=== PATIENT | male | born 1955 | race Caucasian/White ===

== ENCOUNTER 2020-08-02 15:06 | Emergency (ER) | payer MEDICARE, SELFPAY ==
--- NOTE | 2020-08-02 15:19 | ED_ITS ---
HPI - Chest Pain General Chief Complaint: Nausea/Vomiting/Diarrhea <Milton Rivera MD - Last Filed: 08/02/20 15:32> Stated Complaint: Chest pain <Milton Rivera MD - Last Filed: 08/02/20 15:32> Time Seen by Provider: 08/02/20 15:19 <Milton Rivera MD - Last Filed: 08/02/20 15:32> Source: patient <Milton Rivera MD - Last Filed: 08/02/20 15:32> Mode of arrival: EMS <Milton Rivera MD - Last Filed: 08/02/20 15:32> Limitations: no limitations <Milton Rivera MD - Last Filed: 08/02/20 15:32> History of Present Illness HPI narrative: Past four days with Nausea, vomiting and diarrhea. Has been weak. Today while snow blowing the driveway he developed chest pain. Ambulance gave ASA and nitro without relief. <Milton Rivera MD - Last Filed: 08/02/20 15:32> MD complaint: chest pain <Milton Rivera MD - Last Filed: 08/02/20 15:32> Onset (ago): hour(s) <Milton Rivera MD - Last Filed: 08/02/20 15:32> Timing of current episode: episodic <Milton Rivera MD - Last Filed: 08/02/20 15:32> Onset: during exertion <Milton Rivera MD - Last Filed: 08/02/20 15:32> Pain location: left chest <Milton Rivera MD - Last Filed: 08/02/20 15:32> Severity: moderate <Milton Rivera MD - Last Filed: 08/02/20 15:32> Quality: sharp <Milton Rivera MD - Last Filed: 08/02/20 15:32> Relieving factors: nothing <Milton Rivera MD - Last Filed: 08/02/20 15:32> Associated symptoms: nausea and vomiting <Milton Rivera MD - Last Filed: 08/02/20 15:32> Treatment prior to arrival: aspirin and nitroglycerin <Milton Rivera MD - Last Filed: 08/02/20 15:32> Risk Factors Coronary artery disease risk factors: smoking history, hyperlipidemia and hypertension <Milton Rivera MD - Last Filed: 08/02/20 15:32> Related Data Home Medications: Home Medications Medication Instructions Recorded Confirmed citalopram 20 mg tablet 20 mg PO DAILY 04/12/20 06/05/20 lisinopril 10 mg tablet 10 mg PO DAILY 04/12/20 06/05/20 Previous Rx's Medication Instructions Recorded cyclobenzaprine 10 mg tablet 10 mg PO BEDTIME #30 tab 07/11/20 atorvastatin 10 mg tablet 10 mg PO BEDTIME #90 tab 07/12/20 meloxicam 15 mg tablet 15 mg PO DAILY #90 tab 07/12/20 prochlorperazine maleate 5 mg PO TID PRN #14 tab 08/02/20 [Compazine] <Milton Rivera MD - Last Filed: 08/02/20 15:32> Allergies/Adverse Reactions: Allergies Allergy/AdvReac Type Severity Reaction Status Date / Time atorvastatin Allergy Unknown hives Verified 07/11/20 13:52 rosuvastatin Allergy Unknown hives Verified 07/11/20 13:52 simvastatin Allergy Unknown hives Verified 07/11/20 13:52 <Milton Rivera MD - Last Filed: 08/02/20 15:32> Review of Systems Constitutional: Constitutional: Reports no additional constitutional complai nts <Milton Rivera MD - Last Filed: 08/02/20 15:32> Eyes: Eyes: Reports no additional eye complaints <Milton Rivera MD - Last Filed: 08/02/20 15:32> ENT: Denies dizziness <Milton Rivera MD - Last Filed: 08/02/20 15:32> Cardiovascular: Cardiovascular: Reports no additional cardiovascular complaints <Milton Rivera MD - Last Filed: 08/02/20 15:32> Respiratory: Respiratory: Reports as per HPI <Milton Rivera MD - Last Filed: 08/02/20 15:32> Gastrointestinal: Gastrointestinal: Reports no additional gastrointestinal complaints <Milton Rivera MD - Last Filed: 08/02/20 15:32> Musculoskeletal: Musculoskeletal: Reports no additional musculoskeletal complaints <Milton Rivera MD - Last Filed: 08/02/20 15:32> Integumentary/Breasts: Skin/Breast: Denies rash <Milton Rivera MD - Last Filed: 08/02/20 15:32> Neurologic: Reports system reviewed and no additional complaints, except as documented, Denies dizziness and Denies Sensory deficit (Neuro) <Milton Rivera MD - Last Filed: 08/02/20 15:32> Psychiatric: Psychiatric: Denies anxiety <Milton Rivera MD - Last Filed: 08/02/20 15:32> [facility] Past Medical History Medical History: Medical History Benign essential HTN Hypercholesterolemia <Milton Rivera MD - Last Filed: 08/02/20 15:32> Surgical History: Surgical History History of hernia surgery <Milton Rivera MD - Last Filed: 08/02/20 15:32> Family History Family History: Family History Father No problems noted. Mother No problems noted. <Milton Rivera MD - Last Filed: 08/02/20 15:32> Social History Social History: Social History Alcohol intake: former Year quit: 1986 Smoking Status: Former smoker Use of substances other than those prescribed or required for medical reasons: Yes Substance Use Type: Marijuana Substance Use Frequency: Occasionally Last Used Substance: Days (ago) Any prior treatment program specific to substance use: No Advance Directives: No Advance Directives Information Provided: Yes <Milton Rivera MD - Last Filed: 08/02/20 15:32> Physical Exam Vital Signs: Vital Signs: Last Vital Signs Temp 98.1 F 08/02/20 18:00 Pulse 69 08/02/20 21:08 Resp 16 08/02/20 21:08 BP 127/74 08/02/20 21:08 Pulse Ox 97 08/02/20 21:08 Body Mass Index 29.6 <Milton Rivera MD - Last Filed: 08/02/20 15:32> Vital Signs: Last Vital Signs Temp 98.1 F 08/02/20 18:00 Pulse 69 08/02/20 21:08 Resp 16 08/02/20 21:08 BP 127/74 08/02/20 21:08 Pulse Ox 97 08/02/20 21:08 Body Mass Index 29.6 <Radha Hall MD - Last Filed: 08/02/20 21:12> Const: Other: male wretching and vomiting <Mliton Rivera MD - Last Filed: 08/02/20 15:32> Nutritional Appearance: average body habitus <Milton Rivera MD - Last Filed: 08/02/20 15:32> Orientation/consciousness: oriented to person and patient oriented x3 <Milton Rivera MD - Last Filed: 08/02/20 15:32> Limitations: no limitations <Milton Rivera MD - Last Filed: 08/02/20 15:32> HENMT: Head: Yes normal to inspection <Milton Rivera MD - Last Filed: 08/02/20 15:32> Ears: external ears normal <Milton Rivera MD - Last Filed: 08/02/20 15:32> General nose exam: Normal external nose present <Milton Rivera MD - Last Filed: 08/02/20 15:32> Mouth: Normal oral and palatal mucosa present and oropharynx normal <Milton Rivera MD - Last Filed: 08/02/20 15:32> Throat: Yes posterior oropharynx normal <Milton Rivera MD - Last Filed: 08/02/20 15:32> Eyes: General: appearance normal, both eyes and all related structures <Milton Rivera MD - Last Filed: 08/02/20 15:32> Neck: Other: supple <Milton Rivera MD - Last Filed: 08/02/20 15:32> Neck: Yes normal visual inspection <Milton Rivera MD - Last Filed: 08/02/20 15:32> Chest: Chest palpation & inspection: normal inspection of the chest <Milton Rivera MD - Last Filed: 08/02/20 15:32> Resp: Auscultation: clear to auscultation bilaterally <Milton Rivera MD - Last Filed: 08/02/20 15:32> Cardio: Jugular venous distension: no JVD <Milton Rivera MD - Last Filed: 08/02/20 15:32> Rate: regular rate <Milton Rivera MD - Last Filed: 08/02/20 15:32> Rhythm: regular rhythm <Milton Rivera MD - Last Filed: 08/02/20 15:32> Heart sounds: S1 normal heart sound present and S2 normal heart sound present <Milton Rivera MD - Last Filed: 08/02/20 15:32> GI: Inspection: Yes normal to inspection <Milton Rivera MD - Last Filed: 08/02/20 15:32> Palpation (GI): Soft to palpation, nontender and No hepatosplenomegaly present <Milton Rivera MD - Last Filed: 08/02/20 15:32> Auscultation: normal bowel sounds <Milton Rivera MD - Last Filed: 08/02/20 15:32> : General: Yes no CVA tenderness <Milton Rivera MD - Last Filed: 08/02/20 15:32> Back/Spine/Pelvis: Back: no CVA tenderness <Milton Rivera MD - Last Filed: 08/02/20 15:32> Skin: General skin exam: no rashes or lesions noted <Milton Rivera MD - Last Filed: 08/02/20 15:32> Neuro: General: oriented to person and patient oriented x3 <Milton Rivera MD - Last Filed: 08/02/20 15:32> Cranial nerves: Yes CN's II-XII intact bilaterally <Milton Rivera MD - Last Filed: 08/02/20 15:32> Motor exam (neuro): 5/5 motor strength present throughout <Milton Rivera MD - Last Filed: 08/02/20 15:32> Sensory Exam: No Sensory deficit (Neuro) <Milton Rivera MD - Last Filed: 08/02/20 15:32> Extrem: General: Yes normal to inspection <Milton Rivera MD - Last Filed: 08/02/20 15:32> Psych: Appearance: grossly normal <Milton Rivera MD - Last Filed: 08/02/20 15:32> Course Course Course Narrative: I received sign-out from Dr. Rivera. Patient continues nausea and vomiting. After Compazine, patient had no longer vomiting. Second troponin less than delta 50. Patient no longer having chest pain. <Radha Hall MD - Last Filed: 08/02/20 21:12> MDM - Chest Pain Lab Data Result diagrams: : 08/02/20 16:41 08/02/20 16:41 <Milton Rivera MD - Last Filed: 08/02/20 15:32> Labs: Lab Results 08/02/20 08/02/20 08/02/20 Range/Units 16:05 16:41 16:41 WBC 9.8 (4.8-10.8) X10*3/uL RBC 5.24 (4.60-5.80) X10*6/uL Hgb 14.6 (14.0-18.0) g/dl Hct 44.1 (42-52) % MCV 84.2 (80-98) fL MCH 27.9 (27.0-33.0) pg MCHC 33.1 (31.0-36.0) g/dl RDW 13.2 (11.0-16.0) % Plt Count 215 (160-400) X10*3/uL MPV 9.9 (9.4-12.4) fL Immature Gran % (Auto) 0.3 (0.0-0.4) % Neut % (Auto) 83.8 H (45-73) % Lymph % (Auto) 10.8 L (20-40) % [place] % (Auto) 4.9 (2-11) % Eos % (Auto) 0.0 (0-4) % Baso % (Auto) 0.2 (0-2) % Lymph # (Auto) 1.1 L (1.2-4.9) X10*3/uL [place] # (Auto) 0.5 (0.1-1.2) X10*3/uL Eos # (Auto) 0.0 (0.0-0.4) X10*3/uL Baso # (Auto) 0.0 (0.0-0.2) X10*3/uL Abs Immat Gran (auto) 0.03 (0.00-0.03) X10*3/uL Absolute Neuts (auto) 8.3 (2.0-8.3) X10*3/uL Absolute Nucleated RBC 0.000 (0.0-0.012) X10*3/uL Nucleated RBC % (auto) 0.0 (0.0-0.2) /100WBC Sodium 139 (135-145) mmol/L Potassium 4.2 (3.3-5.1) mmol/l Chloride 104 (96-108) mmol/L Carbon Dioxide 24 (22-29) mmol/L Anion Gap 15 (12-20) BUN 25 H (9-16) mg/dL Creatinine 1.37 (0.5-1.4) mg/dL Estim Creat Clear Calc 57.3 Estimated GFR 52 Random Glucose 110 (60-115) mg/dL Calcium 8.9 (8.4-10.2) mg/dL Total Bilirubin 0.8 (0.0-1.0) mg/dL Direct Bilirubin 0.3 (0.0-0.5) mg/dL AST 15 (5-37) U/L ALT 15 (0-40) U/L Alkaline Phosphatase 59 (39-117) U/L Troponin I High Sens (<3.5-35.0) ng/L Total Protein 6.4 L (6.5-8.0) g/dL Albumin 4.1 (3.5-5.0) g/dL Lipase 15 (8-78) U/L COVID-19 (JOSE) Negative (Negative) COVID-19 Clin Com See Note 08/02/20 08/02/20 Range/Units 16:41 19:43 WBC (4.8-10.8) X10*3/uL RBC (4.60-5.80) X10*6/uL Hgb (14.0-18.0) g/dl Hct (42-52) % MCV (80-98) fL MCH (27.0-33.0) pg MCHC (31.0-36.0) g/dl RDW (11.0-16.0) % Plt Count (160-400) X10*3/uL MPV (9.4-12.4) fL Immature Gran % (Auto) (0.0-0.4) % Neut % (Auto) (45-73) % Lymph % (Auto) (20-40) % [place] % (Auto) (2-11) % Eos % (Auto) (0-4) % Baso % (Auto) (0-2) % Lymph # (Auto) (1.2-4.9) X10*3/uL [place] # (Auto) (0.1-1.2) X10*3/uL Eos # (Auto) (0.0-0.4) X10*3/uL Baso # (Auto) (0.0-0.2) X10*3/uL Abs Immat Gran (auto) (0.00-0.03) X10*3/uL Absolute Neuts (auto) (2.0-8.3) X10*3/uL Absolute Nucleated RBC (0.0-0.012) X10*3/uL Nucleated RBC % (auto) (0.0-0.2) /100WBC Sodium (135-145) mmol/L Potassium (3.3-5.1) mmol/l Chloride (96-108) mmol/L Carbon Dioxide (22-29) mmol/L Anion Gap (12-20) BUN (9-16) mg/dL Creatinine (0.5-1.4) mg/dL Estim Creat Clear Calc Estimated GFR Random Glucose (60-115) mg/dL Calcium (8.4-10.2) mg/dL Total Bilirubin (0.0-1.0) mg/dL Direct Bilirubin (0.0-0.5) mg/dL AST (5-37) U/L ALT (0-40) U/L Alkaline Phosphatase (39-117) U/L Troponin I High Sens 14.6 19.3 (<3.5-35.0) ng/L Total Protein (6.5-8.0) g/dL Albumin (3.5-5.0) g/dL Lipase (8-78) U/L COVID-19 (JOSE) (Negative) COVID-19 Clin Com <Milton Rivera MD - Last Filed: 08/02/20 15:32> Lab Results 08/02/20 08/02/20 08/02/20 Range/Units 16:05 16:41 16:41 WBC 9.8 (4.8-10.8) X10*3/uL RBC 5.24 (4.60-5.80) X10*6/uL Hgb 14.6 (14.0-18.0) g/dl Hct 44.1 (42-52) % MCV 84.2 (80-98) fL MCH 27.9 (27.0-33.0) pg MCHC 33.1 (31.0-36.0) g/dl RDW 13.2 (11.0-16.0) % Plt Count 215 (160-400) X10*3/uL MPV 9.9 (9.4-12.4) fL Immature Gran % (Auto) 0.3 (0.0-0.4) % Neut % (Auto) 83.8 H (45-73) % Lymph % (Auto) 10.8 L (20-40) % [place] % (Auto) 4.9 (2-11) % Eos % (Auto) 0.0 (0-4) % Baso % (Auto) 0.2 (0-2) % Lymph # (Auto) 1.1 L (1.2-4.9) X10*3/uL [place] # (Auto) 0.5 (0.1-1.2) X10*3/uL Eos # (Auto) 0.0 (0.0-0.4) X10*3/uL Baso # (Auto) 0.0 (0.0-0.2) X10*3/uL Abs Immat Gran (auto) 0.03 (0.00-0.03) X10*3/uL Absolute Neuts (auto) 8.3 (2.0-8.3) X10*3/uL Absolute Nucleated RBC 0.000 (0.0-0.012) X10*3/uL Nucleated RBC % (auto) 0.0 (0.0-0.2) /100WBC Sodium 139 (135-145) mmol/L Potassium 4.2 (3.3-5.1) mmol/l Chloride 104 (96-108) mmol/L Carbon Dioxide 24 (22-29) mmol/L Anion Gap 15 (12-20) BUN 25 H (9-16) mg/dL Creatinine 1.37 (0.5-1.4) mg/dL Estim Creat Clear Calc 57.3 Estimated GFR 52 Random Glucose 110 (60-115) mg/dL Calcium 8.9 (8.4-10.2) mg/dL Total Bilirubin 0.8 (0.0-1.0) mg/dL Direct Bilirubin 0.3 (0.0-0.5) mg/dL AST 15 (5-37) U/L ALT 15 (0-40) U/L Alkaline Phosphatase 59 (39-117) U/L Troponin I High Sens (<3.5-35.0) ng/L Total Protein 6.4 L (6.5-8.0) g/dL Albumin 4.1 (3.5-5.0) g/dL Lipase 15 (8-78) U/L COVID-19 (JOSE) Negative (Negative) COVID-19 Clin Com See Note 08/02/20 08/02/20 Range/Units 16:41 19:43 WBC (4.8-10.8) X10*3/uL RBC (4.60-5.80) X10*6/uL Hgb (14.0-18.0) g/dl Hct (42-52) % MCV (80-98) fL MCH (27.0-33.0) pg MCHC (31.0-36.0) g/dl RDW (11.0-16.0) % Plt Count (160-400) X10*3/uL MPV (9.4-12.4) fL Immature Gran % (Auto) (0.0-0.4) % Neut % (Auto) (45-73) % Lymph % (Auto) (20-40) % [place] % (Auto) (2-11) % Eos % (Auto) (0-4) % Baso % (Auto) (0-2) % Lymph # (Auto) (1.2-4.9) X10*3/uL [place] # (Auto) (0.1-1.2) X10*3/uL Eos # (Auto) (0.0-0.4) X10*3/uL Baso # (Auto) (0.0-0.2) X10*3/uL Abs Immat Gran (auto) (0.00-0.03) X10*3/uL Absolute Neuts (auto) (2.0-8.3) X10*3/uL Absolute Nucleated RBC (0.0-0.012) X10*3/uL Nucleated RBC % (auto) (0.0-0.2) /100WBC Sodium (135-145) mmol/L Potassium (3.3-5.1) mmol/l Chloride (96-108) mmol/L Carbon Dioxide (22-29) mmol/L Anion Gap (12-20) BUN (9-16) mg/dL Creatinine (0.5-1.4) mg/dL Estim Creat Clear Calc Estimated GFR Random Glucose (60-115) mg/dL Calcium (8.4-10.2) mg/dL Total Bilirubin (0.0-1.0) mg/dL Direct Bilirubin (0.0-0.5) mg/dL AST (5-37) U/L ALT (0-40) U/L Alkaline Phosphatase (39-117) U/L Troponin I High Sens 14.6 19.3 (<3.5-35.0) ng/L Total Protein (6.5-8.0) g/dL Albumin (3.5-5.0) g/dL Lipase (8-78) U/L COVID-19 (JOSE) (Negative) COVID-19 Clin Com <Radha Hall MD - Last Filed: 08/02/20 21:12> Discharge Plan Discharge Clinical Impression: Vomiting, Diarrhea, Chest pain <Milton Rivera MD - Last Filed: 08/02/20 15:32> Patient Disposition: Home, Self-Care <Milton Rivera MD - Last Filed: 08/02/20 15:32> Instructions: Acute Nausea and Vomiting (ED) <Milton Rivera MD - Last Filed: 08/02/20 15:32> Additional Instructions: Please follow-up with your primary care physician tomorrow. If you have any worsening or new symptoms, please return to the emergency room or call 911 <Milton Rivera MD - Last Filed: 08/02/20 15:32> Prescriptions: New prochlorperazine maleate [Compazine] 5 mg tablet 5 mg PO TID PRN (Reason: nausea and vomiting) Qty: 14 RF: 0 No Action atorvastatin 10 mg tablet 10 mg PO BEDTIME Qty: 90 RF: 0 meloxicam 15 mg tablet 15 mg PO DAILY Qty: 90 RF: 0 lisinopril 10 mg tablet 10 mg PO DAILY RF: 0 citalopram 20 mg tablet 20 mg PO DAILY RF: 0 cyclobenzaprine 10 mg tablet 10 mg PO BEDTIME Qty: 30 RF: 0 <Milton Rivera MD - Last Filed: 08/02/20 15:32>
--- NOTE | 2020-08-02 15:32 | ECG_ITS ---
Test Reason : CHEST PAIN Blood Pressure : / mmHG Vent. Rate : 081 BPM Atrial Rate : 081 BPM P-R Int : 200 ms QRS Dur : 122 ms QT Int : 404 ms P-R-T Axes : 015 002 012 degrees QTc Int : 469 ms Normal sinus rhythm with sinus arrhythmia Possible Left atrial enlargement Right bundle branch block Septal infarct (cited on or before 31-OCT-2004) Abnormal ECG When compared with ECG of 31-OCT-2004 10:10, Vent. rate has increased BY 30 BPM Right bundle branch block is now Present Questionable change in initial forces of Septal leads Referred By: Milton Rivera Electronically Signed By:Sage Torres
[2020-08-02 15:41] VITALS: BP 171/89; PULSE 69; RESP 12; O2SAT 99
[2020-08-02 15:51] VITALS: BP 159/85; BP 168/94; PULSE 100; PULSE 81; RESP 16; TEMP 36.8; O2SAT 99; BMI 29.6
[2020-08-02] MEDS: ondansetron HCL 4 MG/2 ML VIAL IVPUSH (16:03)
[2020-08-02] MEDS: 0.9 % Sodium Chloride 1,000 ML 999 ML IVCONT ×2 (16:03→19:07)
[2020-08-02 16:34] LABS: COVID-19 Test Negative (Negative); IDNOW Serial# 9DD0AD1C
[2020-08-02 16:46] LABS: MANUAL DIFF FLAG NO
[2020-08-02 16:55] LABS: Basophils Percent Auto 0.2 % (0-2); Hematocrit 44.1 % (42-52); Hemoglobin 14.6 g/dl (14.0-18.0); Imm Gran Abs Auto 0.03 X10*3/uL (0.00-0.03); Imm Gran Pct Auto 0.3 % (0.0-0.4); Lymphocytes Absolute Auto 1.1 X10*3/uL (1.2-4.9); Lymphocytes Percent Auto 10.8 % (20-40); Mean Corpuscular HGB Conc 33.1 g/dl (31.0-36.0); Mean Corpuscular Hemoglobin 27.9 pg (27.0-33.0); Mean Corpuscular Volume 84.2 fL (80-98); Mean Platelet Volume 9.9 fL (9.4-12.4); Monocytes Absolute Auto 0.5 X10*3/uL (0.1-1.2); Monocytes Percent Auto 4.9 % (2-11); Neutrophils Absolute Auto 8.3 X10*3/uL (2.0-8.3); Neutrophils Percent Auto 83.8 % (45-73); Platelet Count 215 X10*3/uL (160-400); Red Blood Count 5.24 X10*6/uL (4.60-5.80); Red Cell Distribution Width 13.2 % (11.0-16.0); White Blood Count 9.8 X10*3/uL (4.8-10.8)
[2020-08-02 17:16] LABS: Alanine Aminotransferase 15 U/L (0-40); Albumin Level 4.1 g/dL (3.5-5.0); Alkaline Phosphatase 59 U/L (39-117); Anion Gap 15 (12-20); Aspartate Amino Transferase 15 U/L (5-37); Bilirubin Direct 0.3 mg/dL (0.0-0.5); Bilirubin Total 0.8 mg/dL (0.0-1.0); Blood Urea Nitrogen 25 mg/dL (9-16); Calcium 8.9 mg/dL (8.4-10.2); Carbon Dioxide 24 mmol/L (22-29); Chloride 104 mmol/L (96-108); Creatinine Clr Calc Pharmacy 57.3; Estimated Glomerular Filt Rate 52; Glucose Random 110 mg/dL (60-115); Lipase 15 U/L (8-78); Potassium 4.2 mmol/l (3.3-5.1); Sodium 139 mmol/L (135-145); Total Protein 6.4 g/dL (6.5-8.0)
[2020-08-02 17:20] LABS: Troponin-I High Sensitivity 14.6 ng/L (<3.5-35.0)
[2020-08-02 17:27] VITALS: BP 182/93; PULSE 77; RESP 16; O2SAT 98
[2020-08-02 18:00] VITALS: BP 184/84; PULSE 67; RESP 13; TEMP 36.7; O2SAT 99
[2020-08-02] MEDS: Prochlorperazine Edisylate 10 MG/2 ML VIAL IVPUSH (19:07)
[2020-08-02 19:08] VITALS: BP 193/108; PULSE 69; RESP 18; O2SAT 99
[2020-08-02] MEDS: Labetalol HCL 100 MG TABLET PO (19:34)
[2020-08-02 20:14] LABS: Troponin-I High Sensitivity 19.3 ng/L (<3.5-35.0)
[2020-08-02 21:08] VITALS: BP 127/74; PULSE 69; RESP 16; O2SAT 97
[2020-08-02] MEDS: Lidocaine HCl Viscous 2 % 15 ML SOLUTION MUCOUS MEM (21:43)
== END 2020-08-02 21:57 | disposition home or self-care (01) ==
PROVIDERS: Emergency Medicine; Emergency Provider Emergency Medicine; PCP Internal Medicine
DX: R11.2 Nausea with vomiting, unspecified (principal); R07.89 Other chest pain; F12.90 Cannabis use, unspecified, uncomplicated; Z20.822 Contact with and (suspected) exposure to COVID-19; Z79.899 Other long term (current) drug therapy; Z87.891 Personal history of nicotine dependence
CPT/HCPCS: 36415; 80048; 80076; 83690; 84484; 85025; 87635; 93005; 96361; 96374; 96375; 99284; J2405

== ENCOUNTER 2020-08-22 10:51 | Outpatient (REF) | payer MEDICARE, SELFPAY ==
--- NOTE | ~2020-08-22 | CT_ITS ---
EXAMINATION: CT ABDOMEN AND PELVIS WITH CONTRAST CLINICAL INFORMATION: Left lower quadrant pain COMPARISON: None TECHNIQUE: Multidetector volumetric images were obtained from the superior aspect of the liver through the pubic symphysis following administration 85 mL of Omnipaque 350 intravenous contrast. Sagittal and coronal reformatted images were obtained on the technologist's workstation. Oral contrast: No This CT examination was performed using dose optimization techniques as appropriate, variously including the following: *Automated exposure control *Adjustment of mA and/or kV according to patient size (this includes techniques or standardized protocols for targeted exams where dose is matched to indication/reason for exam; i.e. extremities or head) *Use of iterative reconstruction technique DLP: 503 mGy-cm FINDINGS: LUNG BASES: There is mild mosaic lung attenuation at the lung bases suggesting small airways disease. LIVER, GALLBLADDER, AND BILIARY TREE: The liver is normal in size, shape, and attenuation. No focal hepatic lesion or biliary ductal dilatation is present. The gallbladder is unremarkable with no evidence of radiopaque gallstones, gallbladder wall thickening, or obvious pericholecystic inflammatory changes. PANCREAS: Unremarkable. SPLEEN: Unremarkable. ADRENAL GLANDS: Unremarkable. KIDNEYS AND URETERS: Right kidney is normal. There is severe left hydroureteronephrosis with the dilated left ureter followed to the pelvis were there is a 8 mm obstructing left distal ureteral calculus. BLADDER: Unremarkable. GASTROINTESTINAL TRACT: Stomach and small bowel are nondilated. Normal appendix. There is colonic diverticulosis, severe in the sigmoid colon. No evidence of colitis or diverticulitis. ABDOMINAL WALL: There is fat in the inguinal canals bilaterally, right greater than left. Small fat-containing umbilical hernia. LYMPH NODES: Normal. VASCULAR: Unremarkable. PELVIC VISCERA: The prostate and seminal vesicles are unremarkable. OSSEOUS STRUCTURES: Unremarkable. CT/CT abdomen pelvis w con IMPRESSION: Severe left hydroureteronephrosis secondary to a 8 mm obstructing left distal ureteral calculus the level of the midpelvis.
[2020-08-22] MEDS: iohexoL 350 MG/ML 100 ML INFUS..BTL IV (14:01)
[2020-08-22] MEDS: Barium Sulfate Oral (Mocha) 450 ML ORAL.SUSP 900 ML PO (14:02)
== END 2020-08-22 10:52 | disposition home or self-care (01) ==
LOC: HO.CT 10:51
PROVIDERS: Visit Provider Physician Assistant
DX: R10.32 Left lower quadrant pain (principal)
CPT/HCPCS: 74177; Q9967

== ENCOUNTER → 2020-08-29 10:45 | Outpatient (BNVA) | payer MEDICARE, SELFPAY | PROVIDERS: PCP Internal Medicine; Visit Provider Urology | DX: N13.30 Unspecified hydronephrosis (principal); N20.0 Calculus of kidney; N13.8 Other obstructive and reflux uropathy | CPT/HCPCS: 99202 ==

== ENCOUNTER → 2020-09-07 10:49 | Outpatient (BNVA) | payer MEDICARE, SELFPAY | PROVIDERS: PCP Internal Medicine; Visit Provider Physician Assistant | DX: R10.32 Left lower quadrant pain (principal) | CPT/HCPCS: Q3014 ==

== ENCOUNTER 2020-09-11 08:25 | Day surgery (SDC) | payer MEDICARE, SELFPAY ==
[2020-09-07 10:03] VITALS: BMI 28.1
[2020-09-11] VITALS (7 sets, daily range): BP systolic 106–147; BP diastolic 63–92; PULSE 48–56; RESP 14–18; TEMP 36.6–36.8; O2SAT 100
--- NOTE | ~2020-09-11 | FL_ITS ---
EXAMINATION: XR FLUOROSCOPY WITH IMAGES CLINICAL INFORMATION: Left retrograde pyelogram COMPARISON: None. TECHNIQUE: Fluoroscopy performed by Dr. Dewey Gruber. Fluoroscopy time: 35.1 seconds Images: 2 FINDINGS: On the images provided there is a left ureteral stent in place. No contrast seen on these images. FL/FL guidance in OR IMPRESSION: Fluoroscopic guidance with left ureteral stent in place. Please refer to procedural report for further information.
--- NOTE | 2020-09-11 09:43 | HO.ANESPROP2 ---
[facility] Active Problems Active Problems: All Active Problems (Updated 09/08/20 @ 13:04 by Farheen Noonan PA-C) Rhinitis (Acute) Low back pain (Acute) LLQ abdominal pain (Acute) Tubular adenoma of colon (Acute) Abdominal pain, chronic, epigastric (Acute) Insomnia (Acute) Hydronephrosis (Acute) Urinary tract obstruction by kidney stone (Acute) Hypercholesterolemia (Acute) Benign essential HTN (Acute) Past Medical History Medical History Arthritis Back pain Benign essential HTN Bruises easily GERD (gastroesophageal reflux disease) Hypercholesterolemia Nausea Renal calculi Stress Family History Family History Father No problems noted. Mother No problems noted. Surgical History Surgical History H/O colonoscopy History of hernia surgery Social History Social History Household Members: Spouse Are you a primary family day care provider to a significant other at home: No Do you presently have visiting nurse or other home services: No Alcohol intake: current Alcohol intake frequency: a few times a month Alcohol type: beer Smoking Status: Former smoker Smoked in Last 30 Days: No Smoking Quit Date: 2017 Use of substances other than those prescribed or required for medical reasons: Yes Substance Use Type: Marijuana Substance Use Frequency: Occasionally Have you been hit, kicked, punched, or otherwise hurt by someone within the past year? If so, by whom?: No Advance Directives Information Provided: No Recently lost weight without trying: Yes Current occupational status: retired Meds Allergies Allergy/AdvReac Type Severity Reaction Status Date / Time atorvastatin Allergy Intermediate hives Verified 09/07/20 10:50 (high doses) rosuvastatin Allergy Intermediate hives Verified 09/07/20 10:50 (high doses) simvastatin Allergy Intermediate hives Verified 09/07/20 10:50 (high doses) Active Medications: Current Medications Generic Name Dose Route Start Last Admin Trade Name Freq PRN Reason Stop Dose Admin Acetaminophen 650 mg 09/11/20 09:43 Acetaminophen 325 Mg Tablet PO 09/11/20 09:44 ONCE ONE Sodium Chloride 1,000 mls @ 50 mls/hr 09/11/20 09:45 Ns IVCONT .Q20H EMANUEL Levofloxacin 500 mg 09/11/20 09:43 Levofloxacin 500 Mg Tablet PO 09/11/20 09:44 ONCE ONE Home Medications Medication Instructions Recorded Confirmed Last Taken Type lisinopril 10 mg tablet 10 mg PO DAILY 04/12/20 09/07/20 Unknown History cyclobenzaprine 10 mg PO BEDTIME PRN 09/07/20 09/07/20 Unknown History meloxicam 15 mg PO DAILY PRN 09/07/20 09/07/20 Unknown History Exam Exam Date and Time: September 11, 2020 0943 Height,Weight and Vital Signs: Height 5 ft 8 in Weight 83.915 kg Last Vital Signs Temp 98.2 F 09/11/20 09:36 Pulse 56 09/11/20 09:36 Resp 18 09/11/20 09:36 BP 147/77 H 09/11/20 09:36 Pulse Ox 100 09/11/20 09:36 Airway Mallampati Class: II TM Dist: >3cm Neck ROM: Full Partial: Upper and Lower Heart: RRr Lungs: CTA BL Assessment and Plan Assessment Anesthesia Assessment: Anesthesia Plan Discussed and Chart Reviewed Final Anesthetic Review NPO: Yes (Sip water with meds) ASA Class: III Final Preanesthetic Review: No Changes in Pt Med Stat and Consent Obtained/Reviewed Patient Risk: Intermediate Procedure Risk: Intermediate Anesthetic Plan Anesthetic Plan: GA Disposition: Standard PACU
[2020-09-11] MEDS: Acetaminophen 325 MG TABLET 650 MG PO (10:28)
[2020-09-11] MEDS: levoFLOXacin 500 MG TABLET PO (10:29)
--- NOTE | 2020-09-11 12:26 | MHC.SHP ---
Pre-Procedural Eval Section A The patient is an INPATIENT: No Changes since office visit: No Cold of Flu in the past 2 weeks, No New Medical Problems, No Changes in Medication and No Patient answered all questions The History & Physical has been completed within 30 days and I have reviewed it.: Yes Section B Chief Complaint: kidney stone Allergies: Allergies Allergy/AdvReac Type Severity Reaction Status Date / Time atorvastatin Allergy Intermediate hives Verified 09/07/20 10:50 (high doses) rosuvastatin Allergy Intermediate hives Verified 09/07/20 10:50 (high doses) simvastatin Allergy Intermediate hives Verified 09/07/20 10:50 (high doses) Plan Diagnosis/Plan: Unchanged I have reviewed the history and physical and performed a pertinent physical examination on my patient. No changes have occurred unless specified. Cystoscopy, left retrograde, left ureteroscopy laser lithotripsy stent placement
[2020-09-11] MEDS: Lactated Ringers 1,000 ML 50 ML IV (12:40)
--- NOTE | 2020-09-11 13:24 | PM.OP ---
Brief Operative Note Date of Service: 09/11/20 Pre-op diagnosis: Left mid ureteric stone with hydronephrosis Post-op diagnosis: same Procedure: 1. Cystoscopy left retrograde 2. Dilatation left ureteric orifice under fluoroscopy 3. Left rigid ureteroscopy laser lithotripsy stone basketing 4. Left stent placement Implants: Six [place] by 24 cm double-J ureteric catheter Surgeon: Dewey Gruber MD Anesthesia: GLMA Estimated blood loss (mL): 0 Pathology: other (Stones) Condition: stable Disposition: same day
--- NOTE | 2020-09-11 13:29 | P.OP_ITS ---
Operative Note Operative Note Date of Service: 09/11/20 Narrative: PreOperative Diagnosis: Left mid ureteric stone Post Operative Diagnosis: Left mid ureteric stone Procedure: - cystoscopy, left retrograde - left dilatation of ureteric orifice under fluoroscopy - left ureteroscopy, laser lithotripsy, stone basketing - stent placement Surgeon: Dr Dewey Gruber Anesthesia: General Indications for procedure: Persistent left flank pain. He thought it was due to back pain. X-ray revealed stone. Left mid ureteric stone of unknown origin and timing. Recommend ureteroscopy laser lithotripsy since is below level acceptable for ESWL. Risks and benefits were discussed. Procedure: After informed consent was verified patient was brought to the operating placed in supine position. Anesthesia was administered per protocol. Patient was placed in modified dorsal lithotomy position and prepped and draped in a sterile fashion. Safety pause time-out and side of surgery confirmed. Antibiotics confirmed. Twenty-two [place] cystoscope placed per urethra. No abnormality noted of the anterior posterior urethra. Both ureteric orifices in position. Left ureteric orifice cannulated and retrograde examination performed. Filling defects seen in the junction between the distal mid ureter. Sensor guidewire placed. Britany dilator under fluoroscopy used to dilate the left ureteric orifice. Rigid ureteroscopy performed. Stone was encountered. 360 nm laser holmium fiber used.. Stone broken into small pieces. Flat wire basket used to remove debris with multiple passes. When ureter was clear decision made to place a 6 [place] by 24 cm double-J ureteric catheter. The wire was backloaded into the cystoscope and the stent was advanced. He tolerated the procedure well was extubated in the operating room and transferred in stable condition to recovery area. Pathology: Stones Drains: 6 [place] by 24 cm double-J ureteric stent
[2020-09-11] MEDS: Phenazopyridine HCL 100 MG TABLET PO (14:08)
[2020-09-11] MEDS: oxyCODONE HCl Immed Release 5 MG TABLET PO (14:09)
[2020-09-11] MEDS: NaPROXEN 500 MG TABLET PO (14:13)
[2020-09-14 14:52] LABS: Stone Source URETHRAL
== END 2020-09-11 14:46 | disposition home or self-care (01) ==
PROVIDERS: PCP Internal Medicine; Visit Provider Urology
PROC: (CPT 52356; principal; 2020-09-11 10:00)
DX: N13.2 Hydronephrosis with renal and ureteral calculous obstruction (principal); I10 Essential (primary) hypertension; E78.00 Pure hypercholesterolemia, unspecified; Z79.899 Other long term (current) drug therapy; Z88.8 Allergy status to other drugs, medicaments and biological substances; F12.90 Cannabis use, unspecified, uncomplicated; Z87.891 Personal history of nicotine dependence
CPT/HCPCS: 52356; 82365; 88300; C1769; C2617; J1100; J2250; J2405; J3010; Q9967

== ENCOUNTER → 2020-09-21 12:52 | Outpatient (BNVA) | payer MEDICARE, SELFPAY | PROVIDERS: PCP Internal Medicine; Visit Provider Urology | DX: N20.0 Calculus of kidney (principal) | CPT/HCPCS: 52310; 99212 ==

== ENCOUNTER 2020-09-26 12:20 | Outpatient (REF) | payer MEDICARE, SELFPAY ==
--- NOTE | ~2020-09-26 | US_ITS ---
EXAMINATION: US RETROPERITONEAL LIMITED (RENAL ONLY) CLINICAL INFORMATION: Calculus of kidney. COMPARISON: CT abdomen and pelvis to 08/22/2020. TECHNIQUE: Real-time imaging of the kidneys. FINDINGS: RIGHT KIDNEY: 11.3 x 6.9 x 6.3 cm (SAG x AP x TRV). The kidney is normal in size, contour, and echogenicity. Renal cortical thickness is normal. No calculi or focal parenchymal lesions. No hydronephrosis. LEFT KIDNEY: 12.3 x 6.1 x 5.6 cm (SAG x AP x TRV). The kidney is normal in size, contour, and echogenicity. Renal cortical thickness is normal. There is mild left hydronephrosis. The visualized left proximal ureter is dilated. This appears slightly decreased from August 2020 CT scan. No calculi or focal parenchymal lesions. US/US renal BI IMPRESSION: Mild left hydronephrosis and dilatation of the visualized left proximal ureter. This is decreased from August 2020 exam. Normal right kidney.
== END 2020-09-26 12:21 | disposition home or self-care (01) ==
LOC: HO.US 12:20
PROVIDERS: Visit Provider Urology
DX: N20.0 Calculus of kidney (principal)
CPT/HCPCS: 76775

== ENCOUNTER → 2020-11-03 11:23 | Outpatient (BNVA) | payer MEDICARE, SELFPAY | PROVIDERS: PCP Internal Medicine; Visit Provider Urology | DX: N20.0 Calculus of kidney (principal) | CPT/HCPCS: 99212 ==

== ENCOUNTER 2021-01-15 09:01 | Outpatient (REF) | payer MEDICARE, SELFPAY ==
[2021-01-15 10:08] LABS: Hematocrit 46.1 % (42-52); Hemoglobin 14.8 g/dl (14.0-18.0); Mean Corpuscular HGB Conc 32.1 g/dl (31.0-36.0); Mean Corpuscular Hemoglobin 27.7 pg (27.0-33.0); Mean Corpuscular Volume 86.3 fL (80-98); Mean Platelet Volume 10.1 fL (9.4-12.4); Platelet Count 220 X10*3/uL (160-400); Red Blood Count 5.34 X10*6/uL (4.60-5.80); Red Cell Distribution Width 13.2 % (11.0-16.0); White Blood Count 7.1 X10*3/uL (4.8-10.8)
[2021-01-15 10:10] LABS: Glucose Urine UA NEG (NEG); Leukocyte Esterase Urine NEG (NEG); Nitrite Urine NEG (NEG); Specific Gravity - Urine >= 1.030 (1.005-1.025); Urine Blood 2+ (NEG); Urine Ketones NEG (NEG); Urine Protein NEG (NEG-TRACE)
[2021-01-15 10:12] LABS: Appearance Urine CLEAR; Color Urine YELLOW
[2021-01-15 10:26] LABS: Bacteria Urine 1+ /LPF; RBC Urine 0-2 /HPF (0); WBC Urine 0 /HPF (0-4)
[2021-01-15 10:30] LABS: Alanine Aminotransferase 19 U/L (0-40); Albumin Level 4.3 g/dL (3.5-5.0); Alkaline Phosphatase 74 U/L (39-117); Anion Gap 13 (12-20); Aspartate Amino Transferase 20 U/L (5-37); Bilirubin Direct 0.3 mg/dL (0.0-0.5); Bilirubin Total 0.9 mg/dL (0.0-1.0); Blood Urea Nitrogen 18 mg/dL (9-16); Calcium 10.2 mg/dL (8.4-10.2); Carbon Dioxide 25 mmol/L (22-29); Chloride 106 mmol/L (96-108); Cholesterol 182 mg/dL; Estimated Glomerular Filt Rate > 60; Glucose Random 113 mg/dL (60-115); HDL Cholesterol 47 mg/dL; LDL Cholesterol Calculated 106 mg/dl; Potassium 5.2 mmol/L (3.3-5.1); Sodium 139 mmol/L (135-145); Triglycerides 146 mg/dL
[2021-01-15 11:03] LABS: Prostate Specific Antigen Scr 2.47 ng/mL (<0.05-4.0)
== END 2021-01-15 09:02 | disposition home or self-care (01) ==
LOC: HO.LAB 09:01
PROVIDERS: PCP Internal Medicine; Visit Provider Internal Medicine
DX: E78.00 Pure hypercholesterolemia, unspecified (principal); I10 Essential (primary) hypertension
CPT/HCPCS: 36415; 80048; 80061; 80076; 81001; 81003; 84153; 85027

== ENCOUNTER → 2021-05-08 11:14 | Outpatient (BNVA) | payer MEDICARE, SELFPAY | PROVIDERS: Visit Provider Urology | CPT/HCPCS: Q3014 ==

== ENCOUNTER 2021-06-05 12:51 | Outpatient (REF) | payer MEDICARE, SELFPAY ==
--- NOTE | ~2021-06-05 | US_ITS ---
EXAMINATION: US RETROPERITONEAL LIMITED (RENAL ONLY) CLINICAL INFORMATION: Calculus of kidney. COMPARISON: CT abdomen and pelvis 08/22/2020. Renal ultrasound 09/26/2020. TECHNIQUE: Real-time imaging of the kidneys. FINDINGS: RIGHT KIDNEY: 11.6 x 6.5 x 6.4 cm (SAG x AP x TRV). The kidney is normal in size, contour, and echogenicity. Renal cortical thickness is normal. No calculi or focal parenchymal lesions. No hydronephrosis. LEFT KIDNEY: 11.1 x 6.0 x 5.7 cm (SAG x AP x TRV). The kidney is normal in size, contour, and echogenicity. Renal cortical thickness is normal. There is mild fullness in the lower pole calyx. US/US renal BI IMPRESSION: Mild fullness of lower pole calyx without any echogenic stone. Otherwise, the rest of the kidneys are unremarkable. On previous CT 08/22/2020 and ultrasound 09/26/2020 there was moderate hydroureteronephrosis and radiopaque calculi in the distal ureter on CT.
== END 2021-06-05 12:52 | disposition home or self-care (01) ==
LOC: HO.US 12:51
PROVIDERS: PCP Internal Medicine; Visit Provider Urology
DX: N20.0 Calculus of kidney (principal)
CPT/HCPCS: 76775

== ENCOUNTER 2021-10-29 13:17 | Outpatient (REF) | payer MEDICARE, SELFPAY ==
--- NOTE | ~2021-10-29 | US_ITS ---
EXAMINATION: US RETROPERITONEAL LIMITED (RENAL ONLY) CLINICAL INFORMATION: Calculus of kidney. COMPARISON: Renal ultrasound 06/05/2021 and 09/26/2020. CT abdomen and pelvis 08/22/2020. TECHNIQUE: Real-time imaging of the kidneys. FINDINGS: RIGHT KIDNEY: 12.4 x 6.9 x 7.2 cm (SAG x AP x TRV). The kidney is normal in size, contour, and echogenicity. Renal cortical thickness is normal. No calculi or focal parenchymal lesions. No hydronephrosis. There is mild prominence of column of Bandar in the midpole LEFT KIDNEY: 12.7 x 6.0 x 6.2 cm (SAG x AP x TRV). The kidney is normal in size, contour, and echogenicity. Renal cortical thickness is normal. No focal parenchymal lesions or hydronephrosis. There is an echogenic stone lower pole measuring 8 x 4 mm. There is no caliectasis or hydronephrosis. US/US renal BI IMPRESSION: There is a nonobstructive echogenic stone lower pole measuring 8 x 4 mm. Prominent column of Bandar.
== END 2021-10-29 13:18 | disposition home or self-care (01) ==
LOC: HO.US 13:17
PROVIDERS: Visit Provider Urology
DX: N20.0 Calculus of kidney (principal)
CPT/HCPCS: 76775

== ENCOUNTER → 2021-11-14 10:37 | Outpatient (BNVA) | payer MEDICARE, SELFPAY | PROVIDERS: Visit Provider Urology | DX: N20.0 Calculus of kidney (principal) | CPT/HCPCS: 99212 ==

== ENCOUNTER 2022-04-29 10:51 | Outpatient (REF) | payer MEDICARE, SELFPAY ==
--- NOTE | ~2022-04-29 | XR_ITS ---
EXAMINATION: XR ABDOMEN KUB CLINICAL INDICATION: Kidney stone COMPARISON: Previous renal ultrasounds most recent from earlier the same day and CT of the abdomen and pelvis August 2020 TECHNIQUE: AP view of the abdomen. FINDINGS: No renal stone is seen. No calcifications projecting over the expected course of the ureters or bladder. Normal bowel gas pattern. Degenerative changes of the spine. Proximal lumbar vertebral body compression fracture unchanged from previous CT August 2020 XR/XR KUB IMPRESSION: No stone seen.
--- NOTE | ~2022-04-29 | US_ITS ---
EXAMINATION: US RETROPERITONEAL LIMITED (RENAL ONLY) CLINICAL INFORMATION: Calculus of kidney. COMPARISON: Ultrasound retroperitoneal limited (renal only) 10/29/2021 and 06/05/2021. X-ray abdomen KUB 04/29/2022. CT abdomen and pelvis with contrast 08/22/2020. TECHNIQUE: Real-time imaging of the kidneys. Technically limited study secondary to body habitus. FINDINGS: RIGHT KIDNEY: 11.4 x 6.9 x 6.6 cm (SAG x AP x TRV). The kidney is normal in size, contour, and echogenicity. Renal cortical thickness is normal. No calculi or focal parenchymal lesions. No hydronephrosis. LEFT KIDNEY: 12.4 x 5.2 x 5.1 cm (SAG x AP x TRV). The kidney is normal in size, contour, and echogenicity. Renal cortical thickness is normal. No calculi or focal parenchymal lesions. No hydronephrosis. US/US renal BI IMPRESSION: Limited but normal renal ultrasound.
== END 2022-04-29 10:52 | disposition home or self-care (01) ==
LOC: HO.US 10:51
PROVIDERS: Visit Provider Urology
DX: N20.0 Calculus of kidney (principal)
CPT/HCPCS: 74018; 76775

== ENCOUNTER → 2022-05-17 10:49 | Outpatient (BNVA) | payer MEDICARE, SELFPAY | PROVIDERS: PCP Internal Medicine; Visit Provider Urology | DX: N20.0 Calculus of kidney (principal) | CPT/HCPCS: 99212 ==

== ENCOUNTER 2022-06-07 09:23 | Outpatient (REF) | payer MEDICARE, SELFPAY ==
[2022-06-07 10:28] LABS: Hemoglobin 14.8 g/dl (14.0-18.0); Mean Corpuscular HGB Conc 32.9 g/dl (31.0-36.0); Mean Corpuscular Volume 88.2 fL (80.0-98.0); Mean Platelet Volume 10.3 fL (9.4-12.4); Platelet Count 204 X10*3/uL (160-400); Red Cell Distribution Width 13.4 % (11.0-16.0); White Blood Count 6.3 X10*3/uL (4.8-10.8)
[2022-06-07 12:09] LABS: Alanine Aminotransferase 27 U/L (0-40); Albumin Level 4.3 g/dL (3.5-5.0); Alkaline Phosphatase 76 U/L (39-117); Anion Gap 14 (12-20); Aspartate Amino Transferase 22 U/L (5-37); Bilirubin Direct 0.2 mg/dL (0.0-0.5); Bilirubin Total 0.6 mg/dL (0.0-1.0); Blood Urea Nitrogen 17 mg/dL (9-16); Carbon Dioxide 25 mmol/L (22-29); Chloride 108 mmol/L (96-108); Cholesterol 171 mg/dL; Estimated Glomerular Filt Rate > 60; Glucose Random 117 mg/dL (60-115); HDL Cholesterol 43 mg/dL; LDL Cholesterol Calculated 106 mg/dl; Potassium 4.7 mmol/L (3.3-5.1); Thyroid Stimulating Hormone 3.09 uIU/mL (0.32-4.0); Total Protein 6.7 g/dL (6.5-8.0); Triglycerides 113 mg/dL
[2022-06-07 12:37] LABS: Sodium 142 mmol/L (135-145)
== END 2022-06-07 09:24 | disposition home or self-care (01) ==
LOC: HO.LAB 09:23
PROVIDERS: PCP Internal Medicine; Visit Provider Internal Medicine
DX: E78.00 Pure hypercholesterolemia, unspecified (principal); I10 Essential (primary) hypertension
CPT/HCPCS: 36415; 80048; 80061; 80076; 84443; 85027

== ENCOUNTER 2022-12-06 09:50 | Outpatient (REF) | payer MEDICARE, SELFPAY ==
[2022-12-06 10:59] LABS: Hematocrit 45.2 % (42.0-52.0); Hemoglobin 14.6 g/dl (14.0-18.0); Mean Corpuscular HGB Conc 32.3 g/dl (31.0-36.0); Mean Corpuscular Hemoglobin 28.7 pg (27.0-33.0); Mean Platelet Volume 10.7 fL (9.4-12.4); Platelet Count 195 X10*3/uL (160-400); Red Blood Count 5.08 X10*6/uL (4.60-5.80); Red Cell Distribution Width 13.2 % (11.0-16.0)
[2022-12-06 12:10] LABS: Alanine Aminotransferase 28 U/L (0-40); Albumin Level 4.1 g/dL (3.5-5.0); Alkaline Phosphatase 76 U/L (39-117); Anion Gap 10 (12-20); Aspartate Amino Transferase 23 U/L (5-37); Bilirubin Direct 0.2 mg/dL (0.0-0.5); Bilirubin Total 0.7 mg/dL (0.0-1.0); Blood Urea Nitrogen 17 mg/dL (9-16); Calcium 9.6 mg/dL (8.4-10.2); Carbon Dioxide 27 mmol/L (22-29); Chloride 109 mmol/L (96-108); Cholesterol 168 mg/dL; Estimated Glomerular Filt Rate > 60; Glucose Random 101 mg/dL (60-115); HDL Cholesterol 46 mg/dL; LDL Cholesterol Calculated 102 mg/dl; Potassium 4.6 mmol/L (3.3-5.1); Sodium 141 mmol/L (135-145); Total Protein 6.6 g/dL (6.5-8.0); Triglycerides 104 mg/dL
[2022-12-06 12:12] LABS: Thyroid Stimulating Hormone 2.61 uIU/mL (0.32-4.0)
== END 2022-12-06 09:51 | disposition home or self-care (01) ==
LOC: HO.LAB 09:50
PROVIDERS: PCP Internal Medicine; Visit Provider Internal Medicine
DX: I10 Essential (primary) hypertension (principal)
CPT/HCPCS: 36415; 80048; 80061; 80076; 84443; 85027

== ENCOUNTER 2023-05-01 09:21 | Outpatient (REF) | payer MEDICARE, SELFPAY ==
--- NOTE | ~2023-05-01 | US_ITS ---
EXAMINATION: US RETROPERITONEAL LIMITED (RENAL ONLY) CLINICAL INFORMATION: Calculus of kidney. COMPARISON: X-ray abdomen KUB 04/29/2022. Renal ultrasound 04/29/2022 and 10/29/2021. CT abdomen and pelvis 08/22/2020. TECHNIQUE: Real-time imaging of the kidneys. Technically difficult study secondary to body habitus. FINDINGS: RIGHT KIDNEY: 11.4 x 6.9 x 6.0 cm (SAG x AP x TRV). The kidney is normal in size, contour, and echogenicity. Renal cortical thickness is normal. No calculi or focal parenchymal lesions. No hydronephrosis. LEFT KIDNEY: 11.7 x 5.2 x 4.8 cm (SAG x AP x TRV). The kidney is normal in size, contour, and echogenicity. Renal cortical thickness is normal. No calculi or focal parenchymal lesions. No hydronephrosis. US/US renal BI IMPRESSION: Unremarkable examination.
== END 2023-05-01 09:22 | disposition home or self-care (01) ==
LOC: HO.US 09:21
PROVIDERS: PCP Internal Medicine; Visit Provider Urology
DX: N20.0 Calculus of kidney (principal)
CPT/HCPCS: 76775

== ENCOUNTER 2023-05-20 11:26 | Outpatient (AMB) | payer MEDICARE, SELFPAY ==
--- NOTE | 2023-05-20 11:29 | A.OFFVIS_ITS ---
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 He is a patient of Dr Preston. He seen for the following urologic conditions - nephrolithiasis No evidence of stones on imaging Twelve month follow-up Given dietary advice Nephrolithiasis They are here for - further evaluation for nephrolithiasis , They present for evaluation of - back pain none - flank pain none - abdominal pain none Associated symptoms include Fever No Nausea No Chills No Hematuria No Urolithiasis was diagnosed - July 2020 The patient previously had kidney stones whose composition w - September 2020 calcium oxalate monohydrate 70% Laboratory investigations include - no recent labs 24 Hour urine evaluation - none on file Prior treatment(s) include - September 2020 left ureteroscopy Prior imaging includes - July [address] - stone protocol - d istal left 9 mm ureteric stone with moderate to severe hydroureteronephrosis - 10/25 renal ultrasound, no stones slowl y resolving left hydroureteronephrosis - 10/26 renal ultrasound left lower pole 4 mm - 05/28 KUB and ultrasound no evidence o f stones - 05/29 renal ultrasound no evidence of stones Current therapeutic plan will be - continue fluid intake with lemon thera py [facility] Medical History COVID-19 virus infection Arthritis Back pain Bruises easily Nausea GERD (gastroesophageal reflux disease) Renal calculi Stress Hypercholesterolemia Benign essential HTN Surgical History History of extraction of renal calculus H/O colonoscopy History of hernia surgery Family History Father No problems noted. Mother No problems noted. Social History Household Members: Spouse Housing: House Are you a primary customer care associate to a significant other at home: No Do you presently have visiting nurse or other home services: No Alcohol intake: current Alcohol intake frequency: a few times a month Alcohol type: beer Patient Tobacco Use Status: Former Tobacco user e-Cigarette/Vaping Use: Never Used Second Hand Smoke Exposure: No Substance Use Type: Marijuana service: No Current occupational status: retired Cognitive needs: No Hearing needs: No Vision needs: Yes (Glasses) Review of Systems Const Denies chills and Denies fever(s) Card Reports no additional complaints and Denies syncope Resp Denies cough GI Denies abdominal pain and Denies heartburn Reports as per HPI and Denies change in libido Neuro Denies syncope Psych Denies change in libido Endo Denies change in libido Physical Exam Const General: cooperative, healthy appearing, comfortable and no acute distress Orientation/consciousness: patient oriented x3 HEENT Face and sinus: Yes normal facial exam Mouth: moist mucous membranes Neck Neck: Yes normal visual inspection, Yes full ROM and Yes trachea midline Chest Chest palpation & inspection: normal inspection of the chest Resp Effort & Inspection: normal respiratory effort, able to speak in complete sentences and no respiratory distress GI Inspection: Yes normal to inspection Back/Spine/Pelvis Cervical Spine: normal cervical lordosis Thoracic/Lumbar Spine: thoracic and lumbar spine normal to inspection Skin General skin exam: no rashes or lesions noted Neuro General: patient oriented x3, gait normal, tone normal and moves all extremities Extrem General: Yes normal to inspection and Yes capillary refill normal Assessment & Plan Assessment & Plan (1) Renal calculi: Code(s): N20.0 - Calculus of kidney Plan Twelve month follow-up Orders: Orders US renal BI 364 Days N20.0 - Calculus of kidney, N13.8 - Other obstructive and reflux uropathy Prostate Specific Antigen 364 Days N20.0 - Calculus of kidney, N13.8 - Other obstructive and reflux uropathy Patient Instructions: Imaging studies, laboratory and physical exam results were discussed and reviewed in detail. No major barriers to patient understanding were identified. An opportunity to ask questions regarding the treatment plan was provided. All questions were answered. The patient expressed understanding and agreement with the above treatment plan. The patient is aware they should contact our office by phone for worsening of their current condition or the appearance of new urologic symptoms. Compliance is encouraged with any medications and followup testing that is ordered. It is a privilege to participate in the urologic care of your patient. If you have any questions or concerns regarding treatment for the above conditions, or other urologic issues, please do not hesitate to contact me. The office telephone contact is [phone]. This note is constructed using voice recognition software. While every effort has been made to ensure accuracy brake specialist errors may have been included. Yours sincerely, Dr Dewey Gruber MD, [facility] - Urology Providers of Expert, Compassionate Care for the Genitourinary System Coding Level of Care Code Est Pt Level 4 (76907) Diagnoses Renal calculi N20.0
== END 2023-05-20 12:01 | disposition home or self-care (01) ==
PROVIDERS: Visit Provider Urology
DX: N20.0 Calculus of kidney (principal)
CPT/HCPCS: 99213

== ENCOUNTER → 2023-05-20 11:26 | Outpatient (BNVA) | payer MEDICARE, SELFPAY | PROVIDERS: Visit Provider Urology | DX: N20.0 Calculus of kidney (principal); N40.1 Benign prostatic hyperplasia with lower urinary tract symptoms; N13.8 Other obstructive and reflux uropathy | CPT/HCPCS: 99212 ==

== ENCOUNTER 2023-08-14 13:32 | Outpatient (AMB) | payer MEDICARE, SELFPAY ==
--- NOTE | 2023-08-14 13:34 | A.OFFPC_ITS ---
Vital Signs 08/14/23 13:36 Height 5 ft 8 in Weight 220 lb 6 oz BMI 33.5 BP 146/84 H Blood Pressure Location Lt brachial Position Sitting Pulse 77 Pulse Source Pulse Oximeter Pulse Oximetry (%) 97 Oxygen Delivery Method Room Air Intake Visit Reasons: 6 month f/u Intake Note: Patient is here to follow up on HTN, Hypercholesterolemia, low back pain,. Harpooner Required: No Social Sciences Department Chair: Not Required per policy Accompanied by: Self / Same As Patient Allergies No Known Allergies Allergy (Verified 08/14/23 14:26) Medication List - Last Reconciled 08/14/23 by Tadeo Preston MD atorvastatin 10 mg PO BEDTIME citalopram 20 mg PO DAILY lisinopril 10 mg PO DAILY meloxicam 15 mg PO DAILY PRN trazodone 100 mg PO BEDTIME PRN 30 days Tobacco use date assessed: 08/14/23 Fall risk assessment: 1 Fall in past year (01/2023) Last assessed Fall Risk: 08/14/23 Dental Screening Dental Screen Date: 08/14/23 Did you have a dental visit in the last 12 months?: Yes Did you have a dental problem in the last 6 months where you did not have access to dental care?: No Was dental information given to patient?: Patient has dentist HPI 6 month f/u HPI Details 68-year-old male presents to the office for a follow-up visit. Patient spends a lot of time taking care of his who has psychotic mental illness. He has not been exercising or following any particular diet. He has gained some weight in the process. Able to function and do activities of daily living. [facility] Medical History COVID-19 virus infection Arthritis Back pain Bruises easily Nausea GERD (gastroesophageal reflux disease) Renal calculi Stress Hypercholesterolemia Benign essential HTN Surgical History History of extraction of renal calculus H/O colonoscopy History of hernia surgery Family History Father No problems noted. Mother No problems noted. Social History Household Members: Spouse Housing: House Are you a primary ambulatory care nurse to a significant other at home: No Do you presently have visiting nurse or other home services: No Alcohol intake: current Alcohol intake frequency: a few times a month Alcohol type: beer Patient Tobacco Use Status: Former Tobacco user e-Cigarette/Vaping Use: Never Used Second Hand Smoke Exposure: No Substance Use Type: Marijuana service: No Current occupational status: retired Cognitive needs: No Hearing needs: No Vision needs: Yes (Glasses) Questionnaire PHQ-9 Over the last 2 weeks, how often have you been bothered by any of the following problems? 1. Little interest or pleasure in doing things: not at all 2. Feeling down, depressed, or hopeless: not at all 3. Trouble falling or staying asleep, or sleeping too much: not at all 4. Feeling tired or having little energy: not at all 5. Poor appetite or overeating: not at all 6. Feeling bad about yourself - or that you are a failure or have let yourself or your family down: not at all 7. Trouble concentrating on things, such as reading the newspaper or watching television: not at all 8. Moving or speaking so slowly that other people could have noticed. Or the opposite - being so fidgety or restless that you have been moving around a lot more than usual: not at all 9. Thoughts that you would be better off or of hurting yourself in some way: not at all Total score: 0 Depression Screening Interpretation: Negative Depression Screening Done: Yes Source: Developed by Drs. Ryan Zhang, Nicole Pereyra, Mesfin Renae and colleagues, with an educational reji from [employer]. Thrive Questionnaire Date Thrive assessed: 08/14/23 I am a: Patient What is your living situation today?: I have a steady place to live Within the past 12 months, did the food you bought not last and you didn't have the money to get more?: Never true Within the past 12 months, did you worry whether your food would run out before you got money to buy more?: Never true Do you have trouble paying for medicines?: No Do you have trouble getting transportation to medical appointments?: No Do you have trouble paying your heating and electricity bill?: No Do you have trouble taking care of your child, family member or friend?: No Do you have trouble with day-to-day activities such as bathing, preparing meals, shopping, managing finances, etc.?: No Are you currently unemployed and looking for a job?: No Are you interested in more education?: No Currently or been in a relationship where the following occur: no concerns reported THRIVE Score: 0 AUDIT C Alcohol Use Questionnaire (AUDIT-C) 1. How often do you have a drink containing alcohol?: Monthly or less 2. How many drinks containing alcohol do you have on a typical day when you are drinking?: 1 or 2 Total Score: 1 BENOIT-7 AMB Questionnaire BENOIT-7 Date BENOIT - 7 assessed: 08/14/23 Feeling nervous, anxious, or on edge: 0 = Not at all Not being able to stop or control worryin = Not at all Worrying too much about different things: 0 = Not at all Trouble relaxin = Not at all Being so restless that it is hard to sit still: 0 = Not at all Becoming easily annoyed or irritable: 0 = Not at all Feeling afraid as if something awful might happen: 0 = Not at all Total BENOIT-7 score (0-4 normal; 5-9 mild; 10-14 moderate; 15-21 severe): 0 Source: Developed by Drs. Ryan Zhang, Nicole Pereyra, Mesfin Renae and colleagues, with an educational reji from [employer]. Physical exam (Primary Care) Vital Signs: Last Vital Signs Pulse 77 08/14/23 13:36 BP 146/84 H 08/14/23 13:36 Pulse Ox 97 08/14/23 13:36 Oxygen Delivery Method Room Air 08/14/23 13:36 Care Plan Goal for BP management: Blood pressure is in range. Lisinopril has been increased to 20 mg once a day. BMI result Body Mass Index 33.5 BMI Assessment/Plan discussion: High (1 lb per week weight loss suggested.) Tobacco/Smoking Status: Tobacco use Status Tobacco use date assessed 08/14/23 08/14/23 13:42 Patient Tobacco Use Status Former Tobacco user 08/14/23 13:42 e-Cigarette/Vaping Use Never Used 08/14/23 13:42 PHQ-9: PHQ-9 Score PHQ-9: Total score 0 08/14/23 13:42 Depression Screening Interpretation: Negative Thrive Assessment: Date of Thrive Assessment Date Thrive assessed 08/14/23 08/14/23 13:42 Currently or been in a relationship where the following occur: no concerns reported Const General: cooperative and healthy appearing Nutritional Appearance: well nourished Orientation/consciousness: patient oriented x3 Limitations: no limitations HENMT Head: Yes normal to inspection Eyes General: appearance normal, both eyes and all related structures Neck Neck: Yes normal visual inspection Chest Chest palpation & inspection: normal palpation of entire chest wall Resp Effort & Inspection: normal respiratory effort Neuro General: patient oriented x3 Assessment and Plan Assessment & Plan (1) Hypercholesterolemia: Code(s): E78.00 - Pure hypercholesterolemia, unspecified Plan: Blood work has been ordered. Will call with the results. (2) Benign essential HTN: Code(s): I10 - Essential (primary) hypertension Plan: Lisinopril has been increased to 20 mg once a day. Patient was advised to check blood pressure and maintain a log. Orders: Orders Complete Blood Count no Diff Today E78.00 - Pure hypercholesterolemia, unspecified, I10 - Essential (primary) hypertension Basic Metabolic Panel Today E78.00 - Pure hypercholesterolemia, unspecified, I10 - Essential (primary) hypertension Liver Panel Today E78.00 - Pure hypercholesterolemia, unspecified, I10 - Essential (primary) hypertension Thyroid Stimulating Hormone Today E78.00 - Pure hypercholesterolemia, unspecified, I10 - Essential (primary) hypertension UA and rflx microscopic Today E78.00 - Pure hypercholesterolemia, unspecified, I10 - Essential (primary) hypertension Lipid Panel Today E78.00 - Pure hypercholesterolemia, unspecified, I10 - Essential (primary) hypertension Medications: New lisinopril 20 mg PO DAILY 90 tabs 0RF Discontinued lisinopril Discontinued Reason: Doctor's Order 10 mg PO DAILY 90 tabs 1RF Coding Level of Care Code Est Pt Level 4 (53706) Diagnoses Hypercholesterolemia E78.00 Benign essential HTN I10
[2023-08-14 13:36] VITALS: BP 146/84; PULSE 77; O2SAT 97; BMI 33.5
== END 2023-08-14 14:34 | disposition home or self-care (01) ==
PROVIDERS: PCP Internal Medicine; Visit Provider Internal Medicine
DX: E78.00 Pure hypercholesterolemia, unspecified (principal); I10 Essential (primary) hypertension
CPT/HCPCS: 99214

== ENCOUNTER 2023-08-18 08:13 | Outpatient (REF) | payer MEDICARE, SELFPAY ==
[2023-08-18 08:36] LABS: Hematocrit 45.8 % (42.0-52.0); Hemoglobin 15.1 g/dl (14.0-18.0); Mean Corpuscular Hemoglobin 28.6 pg (27.0-33.0); Mean Corpuscular Volume 86.7 fL (80.0-98.0); Mean Platelet Volume 9.6 fL (9.4-12.4); Platelet Count 184 X10*3/uL (160-400); Red Blood Count 5.28 X10*6/uL (4.60-5.80); Red Cell Distribution Width 13.1 % (11.0-16.0); White Blood Count 5.7 X10*3/uL (4.8-10.8)
[2023-08-18 09:48] LABS: Alanine Aminotransferase 25 U/L (0-40); Alkaline Phosphatase 76 U/L (39-117); Anion Gap 12 (12-20); Aspartate Amino Transferase 21 U/L (5-37); Bilirubin Direct 0.1 mg/dL (0.0-0.5); Bilirubin Total 0.4 mg/dL (0.0-1.0); Blood Urea Nitrogen 19 mg/dL (9-16); Calcium 9.6 mg/dL (8.4-10.2); Carbon Dioxide 26 mmol/L (22-29); Chloride 106 mmol/L (96-108); Cholesterol 184 mg/dL (<200); Estimated Glomerular Filt Rate > 60; Glucose Random 110 mg/dL (60-115); HDL Cholesterol 43 mg/dL (>40); LDL Cholesterol Calculated 103 mg/dL (<100); Sodium 140 mmol/L (135-145); Total Protein 6.8 g/dL (6.5-8.0); Triglycerides 190 mg/dL (<150)
[2023-08-18 10:05] LABS: Thyroid Stimulating Hormone 3.55 uIU/mL (0.32-4.0)
[2023-08-18 10:09] LABS: Appearance Urine Clear; Color Urine Yellow; Glucose Urine UA Negative (Negative); Leukocyte Esterase Urine Negative (Negative); Nitrite Urine Negative (Negative); PH 5.5 (5.0-9.0); Specific Gravity - Urine 1.025 (1.005-1.025); Urine Blood Negative (Negative); Urine Ketones Negative (Negative); Urine Protein Trace mg/dL (Neg-Trace)
== END 2023-08-18 08:14 | disposition home or self-care (01) ==
LOC: HO.LAB 08:13
PROVIDERS: PCP Internal Medicine; Visit Provider Internal Medicine
DX: E78.00 Pure hypercholesterolemia, unspecified (principal); I10 Essential (primary) hypertension
CPT/HCPCS: 36415; 80048; 80061; 80076; 81003; 84443; 85027

== ENCOUNTER 2024-02-26 13:29 | Outpatient (AMB) | payer MEDICARE, SELFPAY ==
[2024-02-26 13:31] VITALS: BP 122/84; PULSE 73; O2SAT 98; BMI 33.0
--- NOTE | 2024-02-26 13:31 | A.OFFPC_ITS ---
Vital Signs 02/26/24 13:31 Height 5 ft 8 in Weight 217 lb 6 oz BMI 33.0 BP 122/84 Blood Pressure Location Lt brachial Position Sitting Pulse 73 Pulse Source Pulse Oximeter Pulse Oximetry (%) 98 Oxygen Delivery Method Room Air Intake Visit Reasons: Annual Exam - see comments Risk Management Internship Required: No Accompanied by: Self / Same As Patient Allergies No Known Allergies Allergy (Verified 02/26/24 13:32) Tobacco use date assessed: 02/26/24 Fall risk assessment: No Falls in past year Last assessed Fall Risk: 02/26/24 Dental Screening Dental Screen Date: 02/26/24 Did you have a dental visit in the last 12 months?: Yes Did you have a dental problem in the last 6 months where you did not have access to dental care?: No Was dental information given to patient?: Patient has dentist HPI Annual Exam - see comments HPI Details 68-year-old male presents to the office requesting an annual physical. He is in good health and at baseline state of health. Requesting a few refills. [facility] Medical History (Updated 02/26/24 @ 13:58 by Tadeo Preston MD) Insomnia COVID-19 virus infection Arthritis Back pain Bruises easily Nausea GERD (gastroesophageal reflux disease) Renal calculi Stress Hypercholesterolemia Benign essential HTN Surgical History History of extraction of renal calculus H/O colonoscopy History of hernia surgery Family History Father No problems noted. Mother No problems noted. Social History Household Members: Spouse Housing: House Are you a primary ocular care technician to a significant other at home: No Do you presently have visiting nurse or other home services: No Alcohol intake: current Alcohol intake frequency: a few times a month Alcohol type: beer Patient Tobacco Use Status: Former Tobacco user e-Cigarette/Vaping Use: Never Used Second Hand Smoke Exposure: No Substance Use Type: Marijuana service: No Current occupational status: retired Cognitive needs: No Hearing needs: No Vision needs: Yes (Glasses) Questionnaire PHQ-9 Over the last 2 weeks, how often have you been bothered by any of the following problems? 1. Little interest or pleasure in doing things: not at all 2. Feeling down, depressed, or hopeless: not at all 3. Trouble falling or staying asleep, or sleeping too much: not at all 4. Feeling tired or having little energy: not at all 5. Poor appetite or overeating: not at all 6. Feeling bad about yourself - or that you are a failure or have let yourself or your family down: not at all 7. Trouble concentrating on things, such as reading the newspaper or watching television: not at all 8. Moving or speaking so slowly that other people could have noticed. Or the opposite - being so fidgety or restless that you have been moving around a lot more than usual: not at all 9. Thoughts that you would be better off or of hurting yourself in some way: not at all Total score: 0 Depression Screening Interpretation: Negative Depression Screening Done: Yes Source: Developed by Drs. Ryan Zhang, Nicole Pereyra, Mesfin Renae and colleagues, with an educational reji from [employer]. Thrive Questionnaire Date Thrive assessed: 02/26/24 I am a: Patient What is your living situation today?: I have a steady place to live Within the past 12 months, did the food you bought not last and you didn't have the money to get more?: Never true Within the past 12 months, did you worry whether your food would run out before you got money to buy more?: Never true Do you have trouble paying for medicines?: No Do you have trouble getting transportation to medical appointments?: No Do you have trouble paying your heating and electricity bill?: No Do you have trouble taking care of your child, family member or friend?: No Do you have trouble with day-to-day activities such as bathing, preparing meals, shopping, managing finances, etc.?: No Are you currently unemployed and looking for a job?: No Are you interested in more education?: No THRIVE Score: 0 AUDIT C Alcohol Use Questionnaire (AUDIT-C) 1. How often do you have a drink containing alcohol?: Monthly or less 2. How many drinks containing alcohol do you have on a typical day when you are drinking?: 1 or 2 Total Score: 1 BENOIT-7 AMB Questionnaire BENOIT-7 Date BENOIT - 7 assessed: 02/26/24 Feeling nervous, anxious, or on edge: 0 = Not at all Not being able to stop or control worryin = Not at all Worrying too much about different things: 0 = Not at all Trouble relaxin = Not at all Being so restless that it is hard to sit still: 0 = Not at all Becoming easily annoyed or irritable: 0 = Not at all Feeling afraid as if something awful might happen: 0 = Not at all Total BENOIT-7 score (0-4 normal; 5-9 mild; 10-14 moderate; 15-21 severe): 0 Source: Developed by Drs. Ryan Zhang, Nicole Pereyra, Mesfin Renae and colleagues, with an educational reji from [employer]. Physical exam (Primary Care) Vital Signs: Last Vital Signs Pulse 73 02/26/24 13:31 BP 122/84 02/26/24 13:31 Pulse Ox 98 02/26/24 13:31 Oxygen Delivery Method Room Air 02/26/24 13:31 BMI result Body Mass Index 33.0 Tobacco/Smoking Status: Tobacco use Status Tobacco use date assessed 02/26/24 02/26/24 13:37 Patient Tobacco Use Status Former Tobacco user 02/26/24 13:37 e-Cigarette/Vaping Use Never Used 02/26/24 13:37 PHQ-9: PHQ-9 Score PHQ-9: Total score 0 02/26/24 13:37 Depression Screening Interpretation: Negative Thrive Assessment: Date of Thrive Assessment Date Thrive assessed 02/26/24 02/26/24 13:37 Const General: cooperative and healthy appearing Nutritional Appearance: well nourished Orientation/consciousness: patient oriented x3 Limitations: no limitations HENMT Head: Yes normal to inspection Eyes General: appearance normal, both eyes and all related structures Neck Neck: Yes normal visual inspection Chest Chest palpation & inspection: normal palpation of entire chest wall Resp Effort & Inspection: normal respiratory effort Neuro General: patient oriented x3 Assessment and Plan Assessment & Plan (1) Benign essential HTN: Code(s): I10 - Essential (primary) hypertension Plan: Blood pressure is in range. Continue current medications. (2) Hypercholesterolemia: Code(s): E78.00 - Pure hypercholesterolemia, unspecified Plan: Blood work ordered. Based on the result statin dosage will be adjusted. (3) Annual physical exam: Code(s): Z00.00 - Encounter for general adult medical examination without abnormal findings Plan: Previous colonoscopy record to be obtained. (4) Insomnia: Code(s): G47.00 - Insomnia, unspecified Plan: Trazodone to be continued. New prescription written. Orders: Orders Complete Blood Count no Diff Today E78.00 - Pure hypercholesterolemia, unspecified, I10 - Essential (primary) hypertension Basic Metabolic Panel Today E78.00 - Pure hypercholesterolemia, unspecified, I10 - Essential (primary) hypertension Liver Panel Today E78.00 - Pure hypercholesterolemia, unspecified, I10 - Essential (primary) hypertension UA and rflx microscopic Today E78.00 - Pure hypercholesterolemia, unspecified, I10 - Essential (primary) hypertension Thyroid Stimulating Hormone Today E78.00 - Pure hypercholesterolemia, unspecified, I10 - Essential (primary) hypertension Lipid Panel Today E78.00 - Pure hypercholesterolemia, unspecified, I10 - Essential (primary) hypertension Medications: Refilled atorvastatin 10 mg PO BEDTIME 90 tabs 1RF citalopram 20 mg PO DAILY 90 tabs 1RF lisinopril 20 mg PO DAILY 90 tabs 0RF trazodone 100 mg PO BEDTIME PRN 30 tabs 0RF sleep 30 days Coding Level of Care Code Est Pt Prev Care >65y(14215) Diagnoses Benign essential HTN I10 Hypercholesterolemia E78.00 Annual physical exam Z00.00 Insomnia G47.00
== END 2024-02-26 13:56 | disposition home or self-care (01) ==
PROVIDERS: PCP Internal Medicine; Visit Provider Internal Medicine
DX: I10 Essential (primary) hypertension (principal); E78.00 Pure hypercholesterolemia, unspecified; Z00.00 Encounter for general adult medical examination without abnormal findings; G47.00 Insomnia, unspecified
CPT/HCPCS: 99397

== ENCOUNTER 2024-02-27 08:18 | Outpatient (REF) | payer MEDICARE, SELFPAY ==
[2024-02-27 08:56] LABS: Hematocrit 46.3 % (42.0-52.0); Hemoglobin 15.2 g/dl (14.0-18.0); Mean Corpuscular HGB Conc 32.8 g/dl (31.0-36.0); Mean Corpuscular Hemoglobin 28.8 pg (27.0-33.0); Mean Corpuscular Volume 87.9 fL (80.0-98.0); Mean Platelet Volume 10.1 fL (9.4-12.4); Platelet Count 188 X10*3/uL (160-400); Red Blood Count 5.27 X10*6/uL (4.60-5.80); Red Cell Distribution Width 13.4 % (11.0-16.0); White Blood Count 6.4 X10*3/uL (4.8-10.8)
[2024-02-27 09:19] LABS: Appearance Urine Clear; Color Urine Dark Yellow; Glucose Urine UA Negative (Negative); Leukocyte Esterase Urine Negative (Negative); Nitrite Urine Negative (Negative); PH 5.5 (5.0-9.0); Specific Gravity - Urine >= 1.030 (1.005-1.025); Urine Blood Negative (Negative); Urine Ketones Negative (Negative); Urine Protein Trace mg/dL (Neg-Trace)
[2024-02-27 09:47] LABS: Alanine Aminotransferase 26 U/L (0-40); Alkaline Phosphatase 77 U/L (39-117); Anion Gap 12 (12-20); Aspartate Amino Transferase 21 U/L (5-37); Bilirubin Direct 0.2 mg/dL (0.0-0.5); Bilirubin Total 0.5 mg/dL (0.0-1.0); Blood Urea Nitrogen 22 mg/dL (9-16); Calcium 10.1 mg/dL (8.4-10.2); Carbon Dioxide 27 mmol/L (22-29); Chloride 107 mmol/L (96-108); Cholesterol 184 mg/dL (<200); Estimated Glomerular Filt Rate > 60; Glucose Random 131 mg/dL (60-115); HDL Cholesterol 45 mg/dL (>40); LDL Cholesterol Calculated 97 mg/dL (<100); Potassium 4.1 mmol/L (3.3-5.1); Sodium 142 mmol/L (135-145); Total Protein 6.8 g/dL (6.5-8.0); Triglycerides 213 mg/dL (<150)
[2024-02-27 10:12] LABS: Thyroid Stimulating Hormone 3.68 uIU/mL (0.32-4.0)
== END 2024-02-27 08:19 | disposition home or self-care (01) ==
LOC: HO.LAB 08:18
PROVIDERS: PCP Internal Medicine; Visit Provider Internal Medicine
DX: I10 Essential (primary) hypertension (principal); E78.00 Pure hypercholesterolemia, unspecified
CPT/HCPCS: 36415; 80048; 80061; 80076; 81003; 84443; 85027

== ENCOUNTER 2024-05-10 10:25 | Outpatient (REF) | payer MEDICARE, SELFPAY | END 2024-05-10 10:26 | disposition home or self-care (01) | LOC: HO.US 10:25 | PROVIDERS: PCP Internal Medicine; Visit Provider Urology | DX: N20.0 Calculus of kidney (principal); N13.8 Other obstructive and reflux uropathy | CPT/HCPCS: 76775 ==

== ENCOUNTER 2024-05-18 10:37 | Outpatient (AMB) | payer MEDICARE, SELFPAY ==
--- NOTE | 2024-05-18 10:44 | MHC.OFFVIS ---
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 He is a patient of Dr Preston. He seen for the following urologic conditions - nephrolithiasis No evidence of stones on imaging Twelve month follow-up Given dietary advice Last PSA on file 01/24 2.5 Nephrolithiasis - initial diagnosis 07/26/2020 They are here for - further evaluation for nephrolithiasis, Urolithiasis was diagnosed - July 2020 The patient previously had kidney stones whose composition w - September 2020 calcium oxalate monohydrate 70% Laboratory investigations include - no recent labs 24 Hour urine evaluation - none on file Prior treatment(s) include - September 2020 left ureteroscopy Prior imaging includes - July [address] - stone protocol - distal left 9 mm ureteric stone with moderate to severe hydroureteronephrosis - 10/25 renal ultrasound, no stones slowly resolving left hydroureteronephrosis - 10/26 renal ultrasound left lower pole 4 mm - 05/28 KUB and ultrasound no evidence of stones - 05/29 renal ultrasound no evidence of stones - 05/30 renal ultrasound no evidence of stones Current therapeutic plan will be - continue fluid intake with lemon therapy PFSH Medical History (Updated 02/26/24 @ 13:58 by Tadeo Preston MD) Insomnia COVID-19 virus infection Arthritis Back pain Bruises easily Nausea GERD (gastroesophageal reflux disease) Renal calculi Stress Hypercholesterolemia Benign essential HTN Surgical History History of extraction of renal calculus H/O colonoscopy History of hernia surgery Family History Father No problems noted. Mother No problems noted. Social History Household Members: Spouse Housing: House Are you a primary school childcare attendant to a significant other at home: No Do you presently have visiting nurse or other home services: No Alcohol intake: current Alcohol intake frequency: a few times a month Alcohol type: beer Patient Tobacco Use Status: Former Tobacco user e-Cigarette/Vaping Use: Never Used Second Hand Smoke Exposure: No Substance Use Type: Marijuana service: No Current occupational status: retired Cognitive needs: No Hearing needs: No Vision needs: Yes (Glasses) Review of Systems Const Denies chills and Denies fever(s) Card Reports no additional complaints and Denies syncope Resp Denies cough GI Denies abdominal pain and Denies heartburn Reports as per HPI and Denies change in libido Neuro Denies syncope Psych Denies change in libido Endo Denies change in libido Physical Exam Const General: cooperative, healthy appearing, comfortable and no acute distress Orientation/consciousness: patient oriented x3 HEENT Face and sinus: Yes normal facial exam Mouth: moist mucous membranes Neck Neck: Yes normal visual inspection, Yes full ROM and Yes trachea midline Chest Chest palpation & inspection: normal inspection of the chest Resp Effort & Inspection: normal respiratory effort, able to speak in complete sentences and no respiratory distress GI Inspection: Yes normal to inspection Back/Spine/Pelvis Cervical Spine: normal cervical lordosis Thoracic/Lumbar Spine: thoracic and lumbar spine normal to inspection Skin General skin exam: no rashes or lesions noted Neuro General: patient oriented x3, gait normal, tone normal and moves all extremities Extrem General: Yes normal to inspection and Yes capillary refill normal Assessment & Plan Assessment & Plan (1) Hydronephrosis: Code(s): N13.30 - Unspecified hydronephrosis Category: Medical (2) Renal calculi: Code(s): N20.0 - Calculus of kidney Category: Medical Plan Twelve month follow-up renal ultrasound Orders: Orders US renal BI 12 Months N20.0 - Calculus of kidney Patient Instructions: Imaging studies, laboratory and physical exam results were discussed and reviewed in detail. No major barriers to patient understanding were identified. An opportunity to ask questions regarding the treatment plan was provided. All questions were answered. The patient expressed understanding and agreement with the above treatment plan. The patient is aware they should contact our office by phone for worsening of their current condition or the appearance of new urologic symptoms. Compliance is encouraged with any medications and followup testing that is ordered. It is a privilege to participate in the urologic care of your patient. If you have any questions or concerns regarding treatment for the above conditions, or other urologic issues, please do not hesitate to contact me. The office telephone contact is [phone]. This note is constructed using voice recognition software. While every effort has been made to ensure accuracy alley worker errors may have been included. Yours sincerely, Dr Dewey Gruber MD, [facility] - Urology Providers of Expert, Compassionate Care for the Genitourinary System Coding Level of Care Code Est Pt Level 4 (97211) Diagnoses Hydronephrosis N13.30 Renal calculi N20.0
== END 2024-05-18 11:01 | disposition home or self-care (01) ==
PROVIDERS: PCP Internal Medicine; Visit Provider Urology
DX: N13.30 Unspecified hydronephrosis (principal); N20.0 Calculus of kidney
CPT/HCPCS: 99214

== ENCOUNTER → 2024-05-18 10:37 | Outpatient (BNVA) | payer MEDICARE, SELFPAY | PROVIDERS: PCP Internal Medicine; Visit Provider Urology | DX: N20.0 Calculus of kidney (principal); N13.30 Unspecified hydronephrosis | CPT/HCPCS: 99212 ==

== ENCOUNTER 2024-09-30 09:15 | Outpatient (AMB) | payer MEDICARE, SELFPAY ==
--- NOTE | 2024-09-30 09:52 | MHC.PC.OV ---
Vital Signs 09/30/24 09:54 Height 5 ft 8 in Weight 218 lb 6 oz BMI 33.2 BP 130/60 Blood Pressure Location Lt brachial Position Sitting Pulse 64 Pulse Source Pulse Oximeter Temp 97.3 F Temp Source Temporal Artery Scan Pulse Oximetry (%) 99 Oxygen Delivery Method Room Air Intake Visit Reasons: 6 Month F/U Intake Note: Patient is here to follow up on HTN, Hypercholesterolemia. Hobbing Press Operator Required: No Dressage Judge: Not Required per policy Accompanied by: Self / Same As Patient Allergies No Known Allergies Allergy (Verified 10/01/24 16:52) Medication List - Last Reconciled 10/01/24 by Tadeo Preston MD atorvastatin 10 mg PO BEDTIME citalopram 20 mg PO DAILY lisinopril 20 mg PO DAILY meloxicam 15 mg PO DAILY PRN quetiapine (Seroquel) 50 mg PO BEDTIME Tobacco use date assessed: 09/30/24 Fall risk assessment: No Falls in past year Last assessed Fall Risk: 09/30/24 Dental Screening Dental Screen Date: 09/30/24 Did you have a dental visit in the last 12 months?: Yes Did you have a dental problem in the last 6 months where you did not have access to dental care?: No Was dental information given to patient?: Patient has dentist HPI 6 Month F/U HPI Details 69 yr old male presents to the office to discuss his chronic medical conditions. Continues to have difficulty sleeping. Patient has difficulty sleeping at night. Trazodone given earlier not very helpful. Reports he is under stress as a few people want him to evict from his house. Compliant with medications and not reporting any side effects. Able to function and do all activities of daily living. [facility] Medical History Insomnia COVID-19 virus infection Arthritis Back pain Bruises easily Nausea GERD (gastroesophageal reflux disease) Renal calculi Stress Hypercholesterolemia Benign essential HTN Surgical History (Updated 10/01/24 @ 16:57 by Tadeo Preston MD) History of extraction of renal calculus H/O colonoscopy (04/16/17) History of hernia surgery Family History Father No problems noted. Mother No problems noted. Social History Household Members: Spouse Housing: House Are you a primary career development director to a significant other at home: No Do you presently have visiting nurse or other home services: No Alcohol intake: current Alcohol intake frequency: a few times a month Alcohol type: beer Patient Tobacco Use Status: Former Tobacco user e-Cigarette/Vaping Use: Never Used Second Hand Smoke Exposure: Yes Substance Use Type: Marijuana service: No Current occupational status: retired Cognitive needs: No Hearing needs: No Vision needs: Yes (Glasses) Questionnaire PHQ-9 Over the last 2 weeks, how often have you been bothered by any of the following problems? 1. Little interest or pleasure in doing things: not at all 2. Feeling down, depressed, or hopeless: not at all 3. Trouble falling or staying asleep, or sleeping too much: not at all 4. Feeling tired or having little energy: not at all 5. Poor appetite or overeating: not at all 6. Feeling bad about yourself - or that you are a failure or have let yourself or your family down: not at all 7. Trouble concentrating on things, such as reading the newspaper or watching television: not at all 8. Moving or speaking so slowly that other people could have noticed. Or the opposite - being so fidgety or restless that you have been moving around a lot more than usual: not at all 9. Thoughts that you would be better off or of hurting yourself in some way: not at all Total score: 0 Depression Screening Interpretation: Negative Depression Screening Done: Yes Source: Developed by Drs. Ryan Zhang, Nicole Pereyra, Mesfin Renae and colleagues, with an educational reji from [employer]. Thrive Questionnaire Date Thrive assessed: 09/30/24 I am a: Patient What is your living situation today?: I have a steady place to live Within the past 12 months, did the food you bought not last and you didn't have the money to get more?: Never true Within the past 12 months, did you worry whether your food would run out before you got money to buy more?: Never true Do you have trouble paying for medicines?: No Do you have trouble getting transportation to medical appointments?: No Do you have trouble paying your heating and electricity bill?: No Do you have trouble taking care of your child, family member or friend?: No Do you have trouble with day-to-day activities such as bathing, preparing meals, shopping, managing finances, etc.?: No Are you currently unemployed and looking for a job?: No Are you interested in more education?: No Please select the resources that you would like help with: None Currently or been in a relationship where the following occur: No concerns reported THRIVE Score: 0 AUDIT C Alcohol Use Questionnaire (AUDIT-C) 1. How often do you have a drink containing alcohol?: Monthly or less 2. How many drinks containing alcohol do you have on a typical day when you are drinking?: 1 or 2 Total Score: 1 BENOIT-7 AMB Questionnaire BENOIT-7 Date BENOIT - 7 assessed: 09/30/24 Feeling nervous, anxious, or on edge: 2 = More than half the days Not being able to stop or control worryin = Not at all Worrying too much about different things: 0 = Not at all Trouble relaxin = Not at all Being so restless that it is hard to sit still: 0 = Not at all Becoming easily annoyed or irritable: 0 = Not at all Feeling afraid as if something awful might happen: 0 = Not at all Total BENOIT-7 score (0-4 normal; 5-9 mild; 10-14 moderate; 15-21 severe): 2 Source: Developed by Drs. Ryan Zhang, Nicole Pereyra, Mesfin Renae and colleagues, with an educational reji from [employer]. Physical exam (Primary Care) Vital Signs: Last Vital Signs Temp 97.3 F 09/30/24 09:54 Pulse 64 09/30/24 09:54 BP 130/60 09/30/24 09:54 Pulse Ox 99 09/30/24 09:54 Oxygen Delivery Method Room Air 09/30/24 09:54 BMI result Body Mass Index 33.2 BMI Assessment/Plan discussion: High (One pound per week, weight loss suggested.) BMI High, discussed plan: lifestyle, weight reduction and dietary Tobacco/Smoking Status: Tobacco use Status Tobacco use date assessed 09/30/24 09/30/24 10:01 Patient Tobacco Use Status Former Tobacco user 09/30/24 10:01 e-Cigarette/Vaping Use Never Used 09/30/24 10:01 PHQ-9: PHQ-9 Score PHQ-9: Total score 0 09/30/24 10:01 Depression Screening Interpretation: Negative Thrive Assessment: Date of Thrive Assessment Date Thrive assessed 09/30/24 09/30/24 10:01 Currently or been in a relationship where the following occur: No concerns reported Advance Care Planning discussion: Exists, not on file Date of discussion: 09/30/24 Forms completed: Health Care Proxy and [facility] Actual minutes spent: 5 Const General: cooperative and healthy appearing Nutritional Appearance: well nourished Orientation/consciousness: patient oriented x3 Limitations: no limitations HENMT Head: Yes normal to inspection Eyes General: appearance normal, both eyes and all related structures Neck Neck: Yes normal visual inspection Chest Chest palpation & inspection: normal palpation of entire chest wall Resp Effort & Inspection: normal respiratory effort Neuro General: patient oriented x3 Coding Level of Care Code Est Pt Level 4 (00425) Complex EM visit Add On G2211 Diagnoses Insomnia G47.00 Hypercholesterolemia E78.00 Additional Codes Vital Signs *Quality* - Advance Care Planning discussion: Exists, not on file ([id number]) Assessment & Plan Assessment & Plan (1) Insomnia: Code(s): G47.00 - Insomnia, unspecified Category: Medical Plan: Trazodone has been discontinued. Seroquel has been started. Continue other medications (2) Hypercholesterolemia: Code(s): E78.00 - Pure hypercholesterolemia, unspecified Category: Medical Plan: BW is in range. Continue statins at same dosage. Medications: New quetiapine (Seroquel) 50 mg PO BEDTIME 30 tabs 0RF Refilled citalopram 20 mg PO DAILY 90 tabs 1RF Discontinued trazodone Discontinued Reason: Doctor's Order 100 mg PO BEDTIME 30 days PRN 30 tabs 0RF sleep
[2024-09-30 09:54] VITALS: BP 130/60; PULSE 64; TEMP 36.3; O2SAT 99; BMI 33.2
== END 2024-09-30 10:18 | disposition home or self-care (01) ==
LOC: HO.HMCH 09:16
PROVIDERS: PCP Internal Medicine; Visit Provider Internal Medicine
DX: G47.00 Insomnia, unspecified (principal); E78.00 Pure hypercholesterolemia, unspecified; Z00.00 Encounter for general adult medical examination without abnormal findings

== ENCOUNTER → 2024-09-30 09:15 | Outpatient (BNVA) | payer MEDICARE, SELFPAY | PROVIDERS: PCP Internal Medicine; Visit Provider Internal Medicine | DX: G47.00 Insomnia, unspecified (principal); E78.00 Pure hypercholesterolemia, unspecified | CPT/HCPCS: 99212 ==

== ENCOUNTER 2025-02-10 13:17 | Outpatient (AMB) | payer MEDICARE, SELFPAY ==
--- NOTE | 2025-02-10 13:24 | MHC.PC.OV ---
Vital Signs 02/10/25 13:25 Height 5 ft 8 in Weight 217 lb 8 oz BMI 33.1 BP 140/68 H Blood Pressure Location Lt brachial Position Sitting Pulse 66 Pulse Source Pulse Oximeter Temp 97.1 F Temp Source Temporal Artery Scan Pulse Oximetry (%) 99 Oxygen Delivery Method Room Air Intake Visit Reasons: 3 mo follow up Intake Note: Patient is here to follow up on Lower back pain, HTN, Hypercholesterolemia. Non Destructive Testing Inspector Required: No Energy Analyst: Not Required per policy Accompanied by: Self / Same As Patient Allergies No Known Allergies Allergy (Verified 02/10/25 14:22) Medication List - Last Reconciled 02/10/25 by Tadeo Preston MD atorvastatin 10 mg PO BEDTIME citalopram 20 mg PO DAILY lisinopril 20 mg PO DAILY meloxicam 15 mg PO DAILY PRN quetiapine (Seroquel) 50 mg PO BEDTIME Tobacco use date assessed: 02/10/25 Fall risk assessment: No Falls in past year Last assessed Fall Risk: 02/10/25 Dental Screening Dental Screen Date: 09/30/24 HPI 3 mo follow up HPI Details 69-year-old male presents to the office to discuss his chronic medical conditions. Patient is compliant with medications and reporting no side effects. Able to function and do all activities of daily living. Patient has few stressors. His has severe mental illness and he is the sole lead care manager. Reports he is being forced to sell his house. [facility] Medical History Insomnia COVID-19 virus infection Arthritis Back pain Bruises easily Nausea GERD (gastroesophageal reflux disease) Renal calculi Stress Hypercholesterolemia Benign essential HTN Surgical History History of extraction of renal calculus H/O colonoscopy (04/16/17) History of hernia surgery Family History Father No problems noted. Mother No problems noted. Social History Household Members: Spouse Housing: House Are you a primary lead care manager to a significant other at home: No Do you presently have visiting nurse or other home services: No Alcohol intake: current Alcohol intake frequency: a few times a month Alcohol type: beer Patient Tobacco Use Status: Former Tobacco user e-Cigarette/Vaping Use: Never Used Second Hand Smoke Exposure: Yes Substance Use Type: Marijuana service: No Current occupational status: retired Cognitive needs: No Hearing needs: No Vision needs: Yes (Glasses) Questionnaire Thrive Questionnaire Date Thrive assessed: 09/30/24 BENOIT-7 AMB Questionnaire BENOIT-7 Date BENOIT - 7 assessed: 09/30/24 Source: Developed by Drs. Ryan Zhang, Nicole Pereyra, Mesfin Renae and colleagues, with an educational reji from [employer]. Physical exam (Primary Care) Vital Signs: Last Vital Signs Temp 97.1 F 02/10/25 13:25 Pulse 66 02/10/25 13:25 BP 140/68 H 02/10/25 13:25 Pulse Ox 99 02/10/25 13:25 Oxygen Delivery Method Room Air 02/10/25 13:25 Care Plan Goal for BP management: BP in range. BMI result Body Mass Index 33.1 Tobacco/Smoking Status: Tobacco use Status Tobacco use date assessed 02/10/25 02/10/25 13:35 Patient Tobacco Use Status Former Tobacco user 02/10/25 13:35 e-Cigarette/Vaping Use Never Used 02/10/25 13:35 Thrive Assessment: Date of Thrive Assessment Date Thrive assessed 09/30/24 02/10/25 13:35 Const General: cooperative and healthy appearing Nutritional Appearance: well nourished Orientation/consciousness: patient oriented x3 Limitations: no limitations HENMT Head: Yes normal to inspection Eyes General: appearance normal, both eyes and all related structures Neck Neck: Yes normal visual inspection Chest Chest palpation & inspection: normal palpation of entire chest wall Resp Effort & Inspection: normal respiratory effort Neuro General: patient oriented x3 Coding Level of Care Code Est Pt Level 4 (07049) Complex EM visit Add On G2211 Diagnoses Benign essential HTN I10 Hypercholesterolemia E78.00 Assessment & Plan Assessment & Plan (1) Benign essential HTN: Code(s): I10 - Essential (primary) hypertension Category: Medical Plan: BW has been ordered. Will call with results. (2) Hypercholesterolemia: Code(s): E78.00 - Pure hypercholesterolemia, unspecified Category: Medical Plan: LDL in range, Continue current med. Orders: Orders Basic Metabolic Panel Today E78.00 - Pure hypercholesterolemia, unspecified, I10 - Essential (primary) hypertension Lipid Panel Today E78.00 - Pure hypercholesterolemia, unspecified, I10 - Essential (primary) hypertension Complete Blood Count no Diff Today E78.00 - Pure hypercholesterolemia, unspecified, I10 - Essential (primary) hypertension Liver Panel Today E78.00 - Pure hypercholesterolemia, unspecified, I10 - Essential (primary) hypertension Thyroid Stimulating Hormone Today E78.00 - Pure hypercholesterolemia, unspecified, I10 - Essential (primary) hypertension UA and rflx microscopic Today E78.00 - Pure hypercholesterolemia, unspecified, I10 - Essential (primary) hypertension Medications: Refilled atorvastatin 10 mg PO BEDTIME 90 tabs 1RF citalopram 20 mg PO DAILY 90 tabs 1RF quetiapine (Seroquel) 50 mg PO BEDTIME 90 tabs 1RF lisinopril 20 mg PO DAILY 90 tabs 1RF
[2025-02-10 13:25] VITALS: BP 140/68; PULSE 66; TEMP 36.2; O2SAT 99; BMI 33.1
== END 2025-02-10 14:16 | disposition home or self-care (01) ==
LOC: HO.HMCH 13:18
PROVIDERS: PCP Internal Medicine; Visit Provider Internal Medicine
DX: I10 Essential (primary) hypertension (principal); E78.00 Pure hypercholesterolemia, unspecified

== ENCOUNTER → 2025-02-10 13:17 | Outpatient (BNVA) | payer MEDICARE, SELFPAY | PROVIDERS: PCP Internal Medicine; Visit Provider Internal Medicine | DX: I10 Essential (primary) hypertension (principal); E78.00 Pure hypercholesterolemia, unspecified | CPT/HCPCS: 99212 ==

== ENCOUNTER 2025-02-11 09:13 | Outpatient (REF) | payer MEDICARE, SELFPAY ==
[2025-02-11 09:42] LABS: Hematocrit 46.1 % (42.0-52.0); Hemoglobin 15.1 g/dl (14.0-18.0); Mean Corpuscular HGB Conc 32.8 g/dl (31.0-36.0); Mean Corpuscular Hemoglobin 28.9 pg (27.0-33.0); Mean Corpuscular Volume 88.1 fL (80.0-98.0); NRBC Abs Auto 0.000 X10*3/uL (0.0-0.012); NRBC Pct Auto 0.0 /100WBC (0.0-0.2); Platelet Count 179 X10*3/uL (160-400); Red Blood Count 5.23 X10*6/uL (4.60-5.80); White Blood Count 6.0 X10*3/uL (4.8-10.8)
[2025-02-11 10:22] LABS: Appearance Urine Clear; Glucose Urine UA Negative (Negative); PH 5.0 (5.0-9.0); Specific Gravity - Urine 1.025 (1.005-1.025)
[2025-02-11 10:35] LABS: Alanine Aminotransferase 28 U/L (0-40); Albumin Level 4.3 g/dL (3.5-5.0); Alkaline Phosphatase 80 U/L (39-117); Anion Gap 9 (12-20); Aspartate Amino Transferase 29 U/L (5-37); Blood Urea Nitrogen 18 mg/dL (9-16); Calcium 9.5 mg/dL (8.4-10.2); Carbon Dioxide 26 mmol/L (22-29); Chloride 108 mmol/L (96-108); Cholesterol 183 mg/dL (<200); Estimated Glomerular Filt Rate > 60; HDL Cholesterol 44 mg/dL (>40); Potassium 4.3 mmol/L (3.3-5.1); Sodium 139 mmol/L (135-145); Total Protein 7.0 g/dL (6.5-8.0); Triglycerides 142 mg/dL (<150)
[2025-02-11 10:39] LABS: Prostate Specific Antigen 0.99 ng/mL (<0.05-4.0)
[2025-02-11 10:43] LABS: Thyroid Stimulating Hormone 3.11 uIU/mL (0.32-4.0)
== END 2025-02-11 09:14 | disposition home or self-care (01) ==
LOC: HO.LAB 09:13
PROVIDERS: Urology; PCP Internal Medicine; Visit Provider Internal Medicine
DX: Z12.5 Encounter for screening for malignant neoplasm of prostate (principal); I10 Essential (primary) hypertension; N20.0 Calculus of kidney; N13.8 Other obstructive and reflux uropathy; E78.00 Pure hypercholesterolemia, unspecified
CPT/HCPCS: 36415; 80048; 80061; 80076; 81003; 84153; 84443; 85027

== ENCOUNTER → 2025-03-10 13:13 | Outpatient (AMB) | payer MEDICARE, SELFPAY ==
--- NOTE | 2025-03-10 13:19 | A.OFFPC_ITS ---
Vital Signs 03/10/25 13:20 Height 5 ft 8 in Weight 218 lb BMI 33.1 BP 110/70 Blood Pressure Location Lt brachial Position Sitting Pulse 80 Pulse Source Pulse Oximeter Temp 97.1 F Temp Source Temporal Artery Scan Pulse Oximetry (%) 99 Oxygen Delivery Method Room Air Intake Visit Reasons: ANNUAL PE - see comments Intake Note: Patient is here today for a physical. 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 High School Drafting Teacher: Not Required per policy Accompanied by: Self / Same As Patient Allergies No Known Allergies Allergy (Verified 03/10/25 13:56) Medication List - Last Reconciled 03/10/25 by Tadeo Preston MD atorvastatin 10 mg PO BEDTIME citalopram 20 mg PO DAILY lisinopril 20 mg PO DAILY meloxicam 15 mg PO DAILY PRN quetiapine (Seroquel) 50 mg PO BEDTIME Tobacco use date assessed: 03/10/25 Fall risk assessment: No Falls in past year Last assessed Fall Risk: 03/10/25 Dental Screening Dental Screen Date: 09/30/24 [facility] Medical History Insomnia COVID-19 virus infection Arthritis Back pain Bruises easily Nausea GERD (gastroesophageal reflux disease) Renal calculi Stress Hypercholesterolemia Benign essential HTN Surgical History History of extraction of renal calculus H/O colonoscopy (04/16/17) History of hernia surgery Family History Father No problems noted. Mother No problems noted. Social History Household Members: Spouse Housing: House Are you a primary complex care nurse practitioner to a significant other at home: No Do you presently have visiting nurse or other home services: No Alcohol intake: current Alcohol intake frequency: a few times a week Alcohol type: beer Patient Tobacco Use Status: Former Tobacco user e-Cigarette/Vaping Use: Never Used Second Hand Smoke Exposure: Yes Substance Use Type: Marijuana service: No Current occupational status: retired Cognitive needs: No Hearing needs: No Vision needs: Yes (Glasses) Questionnaire Thrive Questionnaire Date Thrive assessed: 09/30/24 BENOIT-7 AMB Questionnaire BENOIT-7 Date BENIOT - 7 assessed: 09/30/24 Source: Developed by Drs. Ryan Zhang, Nicole Pereyra, Mesfin Renae and colleagues, with an educational reji from [employer]. Physical exam (Primary Care) Vital Signs: Last Vital Signs Temp 97.1 F 03/10/25 13:20 Pulse 80 03/10/25 13:20 BP 110/70 03/10/25 13:20 Pulse Ox 99 03/10/25 13:20 Oxygen Delivery Method Room Air 03/10/25 13:20 BMI result Body Mass Index 33.1 Tobacco/Smoking Status: Tobacco use Status Tobacco use date assessed 03/10/25 03/10/25 13:25 Patient Tobacco Use Status Former Tobacco user 03/10/25 13:25 e-Cigarette/Vaping Use Never Used 03/10/25 13:25 Thrive Assessment: Date of Thrive Assessment Date Thrive assessed 09/30/24 03/10/25 13:20 Const General: cooperative and healthy appearing Nutritional Appearance: well nourished Orientation/consciousness: patient oriented x3 Limitations: no limitations HENMT Head: Yes normal to inspection Eyes General: appearance normal, both eyes and all related structures Neck Neck: Yes normal visual inspection Chest Chest palpation & inspection: normal palpation of entire chest wall Resp Effort & Inspection: normal respiratory effort Neuro General: patient oriented x3 Coding Level of Care Code Est Pt Prev Care >65y(09575) Diagnoses Annual physical exam Z00.00 Assessment & Plan Assessment & Plan (1) Annual physical exam: Code(s): Z00.00 - Encounter for general adult medical examination without abnormal findings Category: Medical Plan: Cologaurd ordered. Orders: Referrals Cologuard Test Z12.11 - Encounter for screening for malignant neoplasm of colon
[2025-03-10 13:20] VITALS: BP 110/70; PULSE 80; TEMP 36.2; O2SAT 99; BMI 33.1
== END ==
LOC: HO.HMCH 13:14
PROVIDERS: PCP Internal Medicine; Visit Provider Internal Medicine
DX: Z00.00 Encounter for general adult medical examination without abnormal findings (principal)

== ENCOUNTER → 2025-03-10 13:13 | Outpatient (BNVA) | payer MEDICARE, SELFPAY | PROVIDERS: PCP Internal Medicine; Visit Provider Internal Medicine | DX: Z00.00 Encounter for general adult medical examination without abnormal findings (principal) | CPT/HCPCS: 99397 ==

== ENCOUNTER → 2025-06-23 10:32 | Outpatient (REF) | payer MEDICARE, SELFPAY ==
--- NOTE | 2025-06-23 10:39 | ECG_ITS ---
Test Reason : htn Blood Pressure : */* mmHG Vent. Rate : 50 BPM Atrial Rate : 50 BPM P-R Int : 232 ms QRS Dur : 142 ms QT Int : 472 ms P-R-T Axes : 7 10 11 degrees QTcB Int : 430 ms Sinus bradycardia with 1st degree A-V block Right bundle branch block Abnormal ECG When compared with ECG of 02-Aug-2020 15:22, AK interval has increased Vent. rate has decreased by 31 bpm Questionable change in QRS duration Criteria for Septal infarct are no longer Present Referred By: Tadeo Preston Electronically Signed By: Sage Torres
--- OUTSIDE RECORDS SUMMARY | 2025-06-23 13:17 | XMS_ITS ---
Author Organization Unknown ENCOUNTERS Encounter Performer Location Date Diagnosis Diagnosis Status Outpatient [address] [address] [id number] [facility] [address] [address] [id number] [facility] *Note: Encounters from your own facility or health system may be excluded. Allergies, Adverse Reactions, Alerts Allergen Type Severity Identification Date atorvastatin drug allergy 20200711 rosuvastatin drug allergy 20200711 simvastatin drug allergy 20200711 Medications Name Date Quantity Days Supplied GPI Number
== END ==
LOC: HO.CARD 10:32
PROVIDERS: PCP Internal Medicine; Visit Provider Internal Medicine
DX: I10 Essential (primary) hypertension (principal)
CPT/HCPCS: 93005

== ENCOUNTER → 2025-06-23 10:39 | Outpatient (BNV) | payer MEDICARE, SELFPAY | PROVIDERS: PCP Internal Medicine; Visit Provider Internal Medicine Cardiovascular Disease | DX: I44.0 Atrioventricular block, first degree (principal); I45.10 Unspecified right bundle-branch block; R00.1 Bradycardia, unspecified | CPT/HCPCS: 93010 ==